=== PATIENT | female | born 1935 | race Hispanic/Latino ===

== ENCOUNTER 2018-06-20 17:06 | Observation (INO) | payer OTHER, MEDICARE ==
[~2018-06-20] VITALS: Ht 132.1 cm; Wt 74.3 kg
[~2018-06-20 17:06] MED LIST: AEC81 PO; ALBU8.5H8 IH; ALEN70TA10 PO; APIX5TAB PO; ATOR40TA69 PO; AZIT500T4 PO; CARV6.25 PO; CHOL100018 PO; D ME PO; ESOM40CA PO; FOLI-74 PO; LEVO25TA54 PO
[2018-06-20 17:38] LABS: BASOPHILS % (AUTO) 1.2 % (0.0-5.0); EOSINOPHILS % (AUTO) 0.4 % (0.0-8.0); HEMATOCRIT 38.5 % (36-48); LYMPHOCYTES % (AUTO) 19.7 % (21.0-51.0); MEAN CORPUSCULAR HEMOGLOBIN 28.3 pg (27.0-33.0); MEAN CORPUSCULAR HGB CONC 32.3 g/dL (32.0-36.0); MEAN CORPUSCULAR VOLUME 87.8 fL (79-99); MONOCYTES % (AUTO) 6.4 % (3.0-13.0); NEUTROPHILS % (AUTO) 72.3 % (40.0-77.0); PLATELET COUNT (AUTO) 193 K/uL (130-400); RED BLOOD CELL COUNT(AUTO) 4.39 MIL/uL (4.00-5.50); RED CELL DISTRIBUTION WIDTH 14.8 % (11.0-15.5); WHITE BLOOD COUNT (AUTO) 9.6 K/uL (4.8-10.8)
[2018-06-20 17:48] LABS: CREATININE 1.4 mg/dL (0.5-1.5)
[2018-06-20 17:50] LABS: INR 1.01 (0.85-1.15); PARTIAL THROMBOPLASTIN TIME 24.2 SEC (26.3-35.5); PROTHROMBIN TIME 10.6 SEC (9.6-11.6)
[2018-06-20 17:53] LABS: ALBUMIN 3.1 g/dL (3.5-5.0); BILIRUBIN,TOTAL 0.5 mg/dL (0.2-1.0); TOTAL PROTEIN, SERUM 6.8 g/dL (6.0-8.3)
[2018-06-20] MEDS ORDERED: AZITHROMYCIN 250 MG TABLET PO ONE (18:01)
[2018-06-20 18:11] LABS: B-TYPE NATRIURETIC PEPTIDE 42 pg/mL (0-100)
[2018-06-20] MEDS ORDERED: IPRATROPIUM/ALBUTEROL SULFATE 3 ML SOLUTION IH ONE (18:12)
[2018-06-20] MEDS ORDERED: SODIUM CHLORIDE 0.9% 50 ML IV ONE (19:03)
[2018-06-20] MEDS ORDERED: CEFTRIAXONE SODIUM 1 GM ONE (19:03)
[2018-06-20] MEDS ORDERED: METHYLPREDNISOLONE SOD SUCC 40MG/ML 1ML ONE (19:43)
[2018-06-20] MEDS ORDERED: ASPIRIN 325 MG TABLET ONE (19:43)
[2018-06-20] MEDS ORDERED: OSELTAMIVIR PHOSPHATE 75 MG CAP ONE (19:44)
[2018-06-20] MEDS ORDERED: GUAIFENESIN-CODEINE 5 ML SYRUP ONE (19:44)
[2018-06-20] MEDS ORDERED: TRAMADOL HCL 50 MG TABLET PO PRN (20:15)
[2018-06-20] MEDS ORDERED: ONDANSETRON HCL 4 MG/2 ML VIAL IVP PRN (20:15)
[2018-06-20 21:01] LABS: APPEARANCE,URINE Clear (CLEAR); BILIRUBIN,URINE Negative (NEGATIVE); COLOR,URINE Yellow (YELLOW); GLUCOSE, URINE (UA) Negative (NEGATIVE); KETONES,URINE Negative (NEGATIVE); LEUKOCYTE ESTERASE ,URINE Negative (NEGATIVE); NITRATE,URINE Negative (NEGATIVE); OCCULT BLOOD,URINE Negative (NEGATIVE); PROTEIN,URINE Negative (NEGATIVE); UROBILINOGEN,URINE 0.2 mg/dL (0.2-1.0)
[2018-06-20] MEDS: IPRATROPIUM/ALBUTEROL SULFATE 3 ML SOLUTION IH SCH (21:56)
[2018-06-20 23:17] VITALS: BP 167/81
[2018-06-20] MEDS: LACTATED RINGERS 1000ML 1,000 ML IV SCH (23:34)
[2018-06-20] MEDS: ACETAMINOPHEN 325 MG TAB PO SCH (23:38)
[2018-06-21] MEDS ORDERED: ATOR40TA71 PO (00:08)
[2018-06-21] MEDS ORDERED: MONT10TA24 PO (00:08)
[2018-06-21] MEDS ORDERED: LEVO50TA11 PO (00:08)
[2018-06-21] MEDS ORDERED: ALBU8.5H8 IH (00:08)
[2018-06-21] MEDS ORDERED: FOLI1TAB24 PO (00:08)
[2018-06-21] MEDS ORDERED: FLUT50BL IH (00:08)
[2018-06-21] MEDS ORDERED: ALEN70TA10 PO (00:08)
[2018-06-21] MEDS ORDERED: ESOM40CA54 PO (00:08)
[2018-06-21] MEDS ORDERED: GUAI100S35 PO (00:08)
[2018-06-21] MEDS ORDERED: CHOL100046 PO (00:08)
[2018-06-21] MEDS ORDERED: CARV12.511 PO (00:08)
[2018-06-21] MEDS ORDERED: APIX5TAB PO (00:08)
[2018-06-21 00:49] LABS: CREATINE KINASE, TOTAL 81 U/L (21-232); MYOGLOBIN 83 ng/mL (10-92); TROPONIN I < 0.04 ng/mL (0.00-0.06)
[2018-06-21] MEDS: ACETAMINOPHEN 325 MG TAB PO SCH ×4 (02:00→20:59)
[2018-06-21] MEDS: IPRATROPIUM/ALBUTEROL SULFATE 3 ML SOLUTION IH SCH ×6 (02:39→21:13)
[2018-06-21 03:00] VITALS: BP 149/61
[2018-06-21] MEDS: GUAIFENESIN-CODEINE 5 ML SYRUP PO PRN ×3 (05:31→17:06)
[2018-06-21 06:33] LABS: HEMATOCRIT 37.3 % (36-48); MEAN CORPUSCULAR HEMOGLOBIN 29.3 pg (27.0-33.0); MEAN CORPUSCULAR HGB CONC 33.7 g/dL (32.0-36.0); PLATELET COUNT (AUTO) 193 K/uL (130-400); RED BLOOD CELL COUNT(AUTO) 4.29 MIL/uL (4.00-5.50); RED CELL DISTRIBUTION WIDTH 14.9 % (11.0-15.5); WHITE BLOOD COUNT (AUTO) 9.1 K/uL (4.8-10.8)
[2018-06-21 06:56] LABS: CARBON DIOXIDE 24 mmol/L (21-32); CHLORIDE 105 mmol/L (101-111); CREATINE KINASE, TOTAL 72 U/L (21-232); CREATININE 1.1 mg/dL (0.5-1.5); GLOMERULAR FILTR. RATE CALC 50 mL/min (>60); GLUCOSE,RANDOM 150 mg/dL (70-105); MYOGLOBIN 68 ng/mL (10-92); POTASSIUM 4.7 mmol/L (3.5-5.1); SODIUM SERUM 138 mmol/L (136-145); TROPONIN I < 0.04 ng/mL (0.00-0.06); UREA NITROGEN, BLOOD 26 mg/dL (7-18)
[2018-06-21 08:00] VITALS: BP 182/82
[2018-06-21] MEDS: OSELTAMIVIR PHOSPHATE 75 MG CAP PO SCH ×2 (08:19→20:59)
[2018-06-21] MEDS: PANTOPRAZOLE SODIUM 40 MG TABLET.DR PO SCH (08:20)
--- NOTE | 2018-06-21 08:52 | NUR ---
BP 182/82 T/C SENT TO ATTENDING MD THROUGH ANSWERING SERVICE. PENDING CALL BACK. 0900.- CALL RECEIVED FROM MD AND NEW ORDERS RECEIVED.
[2018-06-21] MEDS: APIXABAN 5 MG TABLET PO SCH (09:00)
[2018-06-21] MEDS ORDERED: ENOXAPARIN SODIUM 40 MG/0.4 ML SYRINGE SQ SCH (09:00)
[2018-06-21] MEDS: LEVOTHYROXINE 50 MCG TABLET PO SCH (09:00)
[2018-06-21] MEDS ORDERED: ALBUTEROL SULFATE 0.083% 2.5 MG/3 ML INH IH PRN (09:15)
[2018-06-21] MEDS ORDERED: HYDRALAZINE HCL 20 MG/ML VIAL IV PRN (09:15)
[2018-06-21] MEDS: LACTATED RINGERS 1000ML 1,000 ML IV SCH (09:35)
[2018-06-21] MEDS: MONTELUKAST SODIUM 10 MG TAB PO SCH (10:10)
[2018-06-21] MEDS: MULTIVITAMINS/MINERALS/IRO TAB PO SCH (10:10)
[2018-06-21] MEDS: CARVEDILOL 12.5 MG TABLET PO SCH ×2 (10:11→20:59)
[2018-06-21] MEDS: ATORVASTATIN CALCIUM 40 MG TABLET PO SCH (10:15)
[2018-06-21 14:04] VITALS: BP 121/54
[2018-06-21 16:00] VITALS: BP 112/54
[2018-06-21] MEDS ORDERED: AZITHROMYCIN 500MG+NS 250ML 250 ML IV SCH (18:00)
[2018-06-21 19:00] VITALS: BP 119/55
[2018-06-21] MEDS ORDERED: CEFTRIAXONE SODIUM 1 GM IVP SCH (19:00)
[2018-06-21] MEDS: METHYLPREDNISOLONE SOD SUCC 40MG/ML 1ML IVP SCH (20:58)
[2018-06-21 23:32] VITALS: BP 141/57
[2018-06-22] MEDS: IPRATROPIUM/ALBUTEROL SULFATE 3 ML SOLUTION IH SCH ×3 (01:10→10:30)
[2018-06-22] MEDS: ACETAMINOPHEN 325 MG TAB PO SCH ×3 (02:00→14:00)
[2018-06-22 03:40] VITALS: BP_SYST 122; BP_SYST 132; BP_DIAS 53; BP_DIAS 64
[2018-06-22 06:51] LABS: BASOPHILS % (AUTO) 0.3 % (0.0-5.0); EOSINOPHILS % (AUTO) 0.8 % (0.0-8.0); HEMATOCRIT 36.8 % (36-48); LYMPHOCYTES % (AUTO) 26.1 % (21.0-51.0); MEAN CORPUSCULAR HEMOGLOBIN 28.7 pg (27.0-33.0); MEAN CORPUSCULAR HGB CONC 32.9 g/dL (32.0-36.0); MEAN CORPUSCULAR VOLUME 87.3 fL (79-99); MONOCYTES % (AUTO) 7.4 % (3.0-13.0); NEUTROPHILS % (AUTO) 65.4 % (40.0-77.0); PLATELET COUNT (AUTO) 171 K/uL (130-400); RED BLOOD CELL COUNT(AUTO) 4.21 MIL/uL (4.00-5.50); RED CELL DISTRIBUTION WIDTH 14.8 % (11.0-15.5); WHITE BLOOD COUNT (AUTO) 8.4 K/uL (4.8-10.8)
[2018-06-22 07:06] LABS: CREATININE 1.1 mg/dL (0.5-1.5); POTASSIUM 4.3 mmol/L (3.5-5.1)
[2018-06-22 08:00] VITALS: BP 124/55
[2018-06-22] MEDS: MULTIVITAMINS/MINERALS/IRO TAB PO SCH (08:36)
[2018-06-22] MEDS: MONTELUKAST SODIUM 10 MG TAB PO SCH (08:36)
[2018-06-22] MEDS: PANTOPRAZOLE SODIUM 40 MG TABLET.DR PO SCH (08:36)
[2018-06-22] MEDS: APIXABAN 5 MG TABLET PO SCH (08:36)
[2018-06-22] MEDS: ATORVASTATIN CALCIUM 40 MG TABLET PO SCH (08:36)
[2018-06-22] MEDS: LEVOTHYROXINE 50 MCG TABLET PO SCH (08:36)
[2018-06-22] MEDS: CARVEDILOL 12.5 MG TABLET PO SCH (08:38)
[2018-06-22] MEDS: OSELTAMIVIR PHOSPHATE 75 MG CAP PO SCH (08:38)
[2018-06-22] MEDS: METHYLPREDNISOLONE SOD SUCC 40MG/ML 1ML IVP SCH (08:39)
[2018-06-22] MEDS: GUAIFENESIN-CODEINE 5 ML SYRUP PO PRN (08:39)
[2018-06-22] MEDS ORDERED: ARNUITY ELLIPTA IH SCH (09:00)
[2018-06-22 11:54] VITALS: BP 149/59
[2018-06-22 12:00] VITALS: BP 149/59
--- NOTE | 2018-06-22 14:50 | NUR ---
DISCHARGE INSTRUCTIONS WERE PROVIDED TO THE PATIENT AND HER DAUGHTER PRESENT AT THE BEDSIDE BY CHARGE NURSE RAD BECERRA RN WITH PRESCRIPTION AND FOLLOW-UP APPOINTMENT RECOMMENDATION. IV ACCESS WAS REMOVED WITHOUT COMPLICATION AND PRESSURE DRESSING WAS APPLIED ON THE SITE BY RUBI. PATIENT LEFT THE UNIT IN STABLE CONDITION VIA W/C ACCOMPANIED BY CN AND HER DAUGHTER.
== END 2018-06-22 14:50 | disposition home or self-care (01) ==
LOC: EDH 17:06 → EDHIP 19:34 → 3DH 21:55
PROVIDERS: ADMIT Internal Medicine Critical Care Medicine; ATTEND Internal Medicine Critical Care Medicine
DX: J96.01 Acute respiratory failure with hypoxia (principal); I10 Essential (primary) hypertension; E66.9 Obesity, unspecified; J18.1 Lobar pneumonia, unspecified organism; Z86.711 Personal history of pulmonary embolism; Z86.718 Personal history of other venous thrombosis and embolism; Z79.01 Long term (current) use of anticoagulants
CPT/HCPCS: 36415 ×3; 71045 ×2; 80048 ×2; 80053; 81003; 82550 ×3; 83874 ×2; 83880; 84484 ×3; 85025 ×2; 85027; 85610; 85730; 87804 ×2; 93005; 94640 ×11; 94664; A4218; G0378 ×43; J0456; J0696 ×2; J1650; J2920 ×3; 96365; 96366; 96372; 96375; 96376

== ENCOUNTER 2018-09-16 17:26 | Emergency (ER) | payer OTHER, MEDICARE ==
[~2018-09-16 17:26] MED LIST changes: -AEC81 PO; -ATOR40TA69 PO; +ATOR40TA71 PO; -AZIT500T4 PO; +CARV12.511 PO; -CARV6.25 PO; -CHOL100018 PO; +CHOL100046 PO; -D ME PO; -ESOM40CA PO; +ESOM40CA54 PO; +FLUT50BL IH; -FOLI-74 PO; +FOLI1TAB24 PO; +GUAI100S35 PO; -LEVO25TA54 PO; +LEVO50TA11 PO; +MONT10TA24 PO
[2018-09-16] MEDS ORDERED: HYDROCODONE/ACETAMINOPHEN 10/325 MG TAB ONE (18:56)
== END 2018-09-16 19:49 | disposition home or self-care (01) ==
LOC: EDH 17:26
DX: S42.201A Unspecified fracture of upper end of right humerus, initial encounter for closed fracture (principal); I10 Essential (primary) hypertension; J44.9 Chronic obstructive pulmonary disease, unspecified; E78.5 Hyperlipidemia, unspecified; E07.9 Disorder of thyroid, unspecified; E11.9 Type 2 diabetes mellitus without complications; Z95.1 Presence of aortocoronary bypass graft; W01.0XXA Fall on same level from slipping, tripping and stumbling without subsequent striking against object, initial encounter; Y93.01 Activity, walking, marching and hiking; Y92.89 Other specified places as the place of occurrence of the external cause; Y99.8 Other external cause status
CPT/HCPCS: 29105; 73060; 73080

== ENCOUNTER → 2018-11-27 | Outpatient (CLI) | payer OTHER, MEDICARE | END | disposition home or self-care (01) | LOC: SHCH 09:05 | PROVIDERS: ATTEND Internal Medicine Cardiovascular Disease | DX: M79.605 Pain in left leg (principal); M79.604 Pain in right leg | CPT/HCPCS: 93922 ==

== ENCOUNTER → 2020-11-13 | Outpatient (CLI) | payer OTHER, MEDICARE ==
[~2020-11-13] VITALS: Ht 149.9 cm; Wt 76.7 kg
[~2020-11-13] MED LIST changes: -ALEN70TA10 PO; +ALEN70TA80 PO; -GUAI100S35 PO; -MONT10TA24 PO; +MONT10TA32 PO; +REGADENOSON 0.4 MG/5 ML PF SYG IVP SCH; +[UNRECOGNIZED DRUG - CODE] PO
== END | disposition home or self-care (01) ==
LOC: SHCH 09:40
PROVIDERS: ATTEND Internal Medicine Cardiovascular Disease
DX: R06.09 Other forms of dyspnea (principal)
CPT/HCPCS: 78452; 93017; 96374; A9500 ×2; J2785

== ENCOUNTER 2023-11-22 21:02 | Inpatient (IN) | payer MEDICARE, OTHER ==
[~2023-11-22] VITALS: Ht 149.9 cm; Wt 72.8 kg
[~2023-11-22 21:02] MED LIST changes: -ESOM40CA54 PO; +ESOM40CA66 PO; -FOLI1TAB24 PO; +FOLI1TAB26 PO; +MONT-39 PO; -MONT10TA32 PO; -REGADENOSON 0.4 MG/5 ML PF SYG IVP SCH
[2023-11-22 21:30] LABS: BASOPHILS # (AUTO) 0.04 K/uL (0.00-0.20); BASOPHILS % (AUTO) 0.3 % (0.0-5.0); EOSINOPHILS # (AUTO) 0.09 K/uL (0.00-0.70); EOSINOPHILS % (AUTO) 0.7 % (0.0-8.0); HEMATOCRIT 36.7 % (36-48); IMMATURE GRANULOCYTE ABSOLUTE 0.08 K/uL (0-1); LYMPHOCYTES # (AUTO) 1.4 K/uL (1.0-4.8); LYMPHOCYTES % (AUTO) 11.2 % (21.0-51.0); MEAN CORPUSCULAR HEMOGLOBIN 28.7 pg (27.0-33.0); MEAN CORPUSCULAR VOLUME 87.2 fL (79-99); MONOCYTES # (AUTO) 0.6 K/uL (0.1-1.0); MONOCYTES % (AUTO) 4.9 % (3.0-13.0); NEUTROPHILS # (AUTO) 10.3 K/uL (1.8-7.7); NEUTROPHILS % (AUTO) 82.3 % (40.0-77.0); PLATELET COUNT (AUTO) 181 K/uL (130-400); RED BLOOD CELL COUNT(AUTO) 4.21 MIL/uL (4.00-5.50); RED CELL DISTRIBUTION WIDTH 13.7 % (11.0-15.5); WHITE BLOOD COUNT (AUTO) 12.5 K/uL (4.8-10.8)
[2023-11-22 21:42] LABS: ALBUMIN 3.4 g/dL (3.5-5.0); CREATININE 1.3 mg/dL (0.5-1.0); POTASSIUM 4.7 mmol/L (3.5-5.1)
[2023-11-22 21:50] LABS: BILIRUBIN,TOTAL 0.7 mg/dL (0.2-1.0)
[2023-11-22 21:57] LABS: INR <= 0.93 (0.85-1.15); PROTHROMBIN TIME 10.8 SEC (9.6-11.6)
[2023-11-22 21:58] LABS: PARTIAL THROMBOPLASTIN TIME 26.9 SEC (26.3-35.5)
[2023-11-22 21:59] LABS: B-TYPE NATRIURETIC PEPTIDE 117 pg/mL (0-100)
[2023-11-22] MEDS: 0.9% NACL 500ML IV.SOLN 500 ML IV ONE (22:21)
[2023-11-22] MEDS ORDERED: ONDANSETRON 4MG INJ IV PRN (23:30)
[2023-11-22] MEDS ORDERED: ACETAMINOPHEN 325 MG TAB PO PRN ×2 (23:30)
[2023-11-23] MEDS: PANTOPRAZOLE 40 MG/VIAL IVP ONE ×2 (00:11→00:12)
[2023-11-23] MEDS: MAG/ALUM/SIMETH 30 ML UDCUP PO ONE (00:11)
[2023-11-23] MEDS: DICYCLOMINE HCL 10 MG/5 ML ML PO ONE (00:11)
[2023-11-23] MEDS: LIDOCAINE HCL 2% VISCOUS 15 ML UDCUP PO ONE (00:11)
[2023-11-23] MEDS: LACTATED RINGERS 1000ML 1,000 ML IV SCH (00:12)
[2023-11-23] MEDS: MORPHINE 2 MG SYG IM ONE (00:12)
[2023-11-23] MEDS: ONDANSETRON 4MG INJ IVP ONE (00:12)
[2023-11-23] MEDS: MORPHINE 4 MG SYG IV PRN (00:12)
[2023-11-23] MEDS ORDERED: LEVO50TA11 PO (00:32)
[2023-11-23] MEDS ORDERED: APIX5TAB PO (00:32)
[2023-11-23] MEDS ORDERED: FLUT1AER IH (00:32)
[2023-11-23] MEDS ORDERED: LORA10TA7 PO (00:32)
[2023-11-23] MEDS ORDERED: MONT-39 PO (00:32)
[2023-11-23] MEDS ORDERED: MULT-1367 PO (00:32)
[2023-11-23] MEDS ORDERED: ESOM40CA66 PO (00:32)
[2023-11-23] MEDS ORDERED: ALBU18HF7 IH (00:32)
[2023-11-23] MEDS ORDERED: PIND5 PO (00:32)
[2023-11-23] MEDS ORDERED: FOLI1TAB85 PO (00:32)
[2023-11-23] MEDS ORDERED: LINA5TAB PO (00:32)
[2023-11-23] MEDS ORDERED: ROSU10TA72 PO (00:32)
[2023-11-23] MEDS: 0.9%NACL 1000ML 1,000 ML IV SCH (01:50)
[2023-11-23] MEDS ORDERED: POTASSIUM CHLORIDE 20MEQ/100ML 100 ML IV PRN (02:30)
[2023-11-23 02:35] LABS: BASOPHILS # (AUTO) 0.03 K/uL (0.00-0.20); BASOPHILS % (AUTO) 0.3 % (0.0-5.0); EOSINOPHILS # (AUTO) 0.07 K/uL (0.00-0.70); EOSINOPHILS % (AUTO) 0.6 % (0.0-8.0); HEMATOCRIT 35.1 % (36-48); IMMATURE GRANULOCYTE ABSOLUTE 0.06 K/uL (0-1); MEAN CORPUSCULAR HEMOGLOBIN 29.2 pg (27.0-33.0); MEAN CORPUSCULAR HGB CONC 33.3 g/dL (32.0-36.0); MEAN CORPUSCULAR VOLUME 87.5 fL (79-99); MONOCYTES # (AUTO) 0.8 K/uL (0.1-1.0); MONOCYTES % (AUTO) 7.3 % (3.0-13.0); NEUTROPHILS # (AUTO) 8.6 K/uL (1.8-7.7); NEUTROPHILS % (AUTO) 74.3 % (40.0-77.0); PLATELET COUNT (AUTO) 164 K/uL (130-400); RED BLOOD CELL COUNT(AUTO) 4.01 MIL/uL (4.00-5.50); RED CELL DISTRIBUTION WIDTH 13.4 % (11.0-15.5); WHITE BLOOD COUNT (AUTO) 11.6 K/uL (4.8-10.8)
[2023-11-23] MEDS: ZOSYN 3.375GM +NS 50ML IV SCH (02:48)
[2023-11-23 02:49] LABS: HEMOGLOBIN A1C 6.1 % (4.0-6.0)
[2023-11-23 02:58] LABS: INR <= 0.93 (0.85-1.15); PROTHROMBIN TIME 10.9 SEC (9.6-11.6)
[2023-11-23 03:00] LABS: PARTIAL THROMBOPLASTIN TIME 25.9 SEC (26.3-35.5)
[2023-11-23 03:19] LABS: CREATININE 1.2 mg/dL (0.5-1.0); MAGNESIUM 1.6 mg/dL (1.80-2.40); PHOSPHORUS 3.3 mg/dL (2.5-4.9); POTASSIUM 4.1 mmol/L (3.5-5.1)
[2023-11-23 03:29] LABS: APPEARANCE,URINE CLEAR (CLEAR); BILIRUBIN,URINE NEGATIVE (NEGATIVE); COLOR,URINE COLORLESS (YELLOW); GLUCOSE, URINE (UA) NEGATIVE (NEGATIVE); KETONES,URINE NEGATIVE (NEGATIVE); LEUKOCYTE ESTERASE ,URINE NEGATIVE Leu/uL (NEGATIVE); NITRATE,URINE NEGATIVE (NEGATIVE); OCCULT BLOOD,URINE NEGATIVE (NEGATIVE); PH,URINE 5.5 (5.0-8.0); PROTEIN,URINE NEGATIVE (NEGATIVE); UROBILINOGEN,URINE 0.2 mg/dL (0.2-1.0)
[2023-11-23 03:41] LABS: ADD UA MICROSCOPIC NO
[2023-11-23 04:27] LABS: SODIUM,URINE RANDOM 19 mmol/l (40-220)
[2023-11-23] MEDS: INSULIN HUMULIN R 100 UNIT/ML 3ML SQ SCH (07:30)
[2023-11-23] MEDS: PANTOPRAZOLE 40 MG/VIAL IVP SCH (08:20)
[2023-11-23] MEDS ORDERED: ALBUTEROL SULFATE IH PRN (09:30)
[2023-11-23] MEDS ORDERED: MORPHINE 2 MG SYG IV PRN (09:30)
[2023-11-23 11:45] VITALS: O2SAT 94
[2023-11-23 12:00] VITALS: BP 124/65; PULSE 86; RESP 14
[2023-11-23 16:00] VITALS: BP 115/57; PULSE 89; RESP 14
[2023-11-23] MEDS: MAGNESIUM 2GM PREMIX 50ML 50 ML IV PRN (18:12)
[2023-11-23 18:53] VITALS: PULSE 84; RESP 18; O2SAT 95
[2023-11-23] MEDS: GUAIFENESIN-DM 200/20 MG 10 ML PO PRN (18:55)
[2023-11-23 20:00] VITALS: BP 131/62; PULSE 86; RESP 18; O2SAT 96
[2023-11-23] MEDS: ATORVASTATIN 20 MG TABLET PO SCH (20:50)
[2023-11-23] MEDS: ALBUTEROL 0.083% 2.5 MG/3 ML INH IH SCH (23:22)
[2023-11-23] MEDS: IPRATROPIUM 0.5 MG/2.5 ML INH IH SCH (23:22)
[2023-11-23] MEDS: ALBUTEROL 0.083% 2.5 MG/3 ML INH IH ONE (23:23)
[2023-11-23] MEDS: IPRATROPIUM 0.5 MG/2.5 ML INH IH ONE (23:23)
[2023-11-23 23:25] VITALS: PULSE 82; RESP 18
[2023-11-24] VITALS (12 sets, daily range): BP systolic 118–161; BP diastolic 53–77; PULSE 71–96; RESP 17–18; O2SAT 92–96
[2023-11-24 03:57] LABS: BASOPHILS # (AUTO) 0.02 K/uL (0.00-0.20); BASOPHILS % (AUTO) 0.3 % (0.0-5.0); EOSINOPHILS # (AUTO) 0.12 K/uL (0.00-0.70); EOSINOPHILS % (AUTO) 1.9 % (0.0-8.0); HEMATOCRIT 34.3 % (36-48); IMMATURE GRANULOCYTE ABSOLUTE 0.01 K/uL (0-1); LYMPHOCYTES # (AUTO) 1.8 K/uL (1.0-4.8); LYMPHOCYTES % (AUTO) 27.4 % (21.0-51.0); MEAN CORPUSCULAR HEMOGLOBIN 28.4 pg (27.0-33.0); MEAN CORPUSCULAR HGB CONC 31.8 g/dL (32.0-36.0); MEAN CORPUSCULAR VOLUME 89.3 fL (79-99); MONOCYTES # (AUTO) 0.6 K/uL (0.1-1.0); MONOCYTES % (AUTO) 8.8 % (3.0-13.0); NEUTROPHILS % (AUTO) 61.4 % (40.0-77.0); PLATELET COUNT (AUTO) 162 K/uL (130-400); RED BLOOD CELL COUNT(AUTO) 3.84 MIL/uL (4.00-5.50); RED CELL DISTRIBUTION WIDTH 14.3 % (11.0-15.5); WHITE BLOOD COUNT (AUTO) 6.5 K/uL (4.8-10.8)
[2023-11-24 04:14] LABS: ALBUMIN 2.7 g/dL (3.5-5.0); BILIRUBIN,TOTAL 0.9 mg/dL (0.2-1.0); CREATININE 1.5 mg/dL (0.5-1.0); MAGNESIUM 2.7 mg/dL (1.80-2.40); POTASSIUM 4.3 mmol/L (3.5-5.1); TOTAL PROTEIN, SERUM 6.1 g/dL (6.0-8.3)
[2023-11-24] MEDS: LEVOTHYROXINE 50 MCG TABLET PO SCH (05:49)
[2023-11-24] MEDS: BUDESONIDE 0.5 MG/2 ML INH IH SCH (06:24)
[2023-11-24 07:01] LABS: ABG BASE EXCESS -0.7 mmol/L (-2.0-3.0); ABG HCO3 24.8 mmol/L (21.0-28.0); ABG OXYGEN SATURATION 92.2 % (95.0-99.0); ABG PCO2 44 mmHg (32-45); ABG PH 7.372 (7.35-7.450); VENT MODE, BG RA (ROOM AIR)
[2023-11-24] MEDS: ERYTHROMYCIN BASE 0.5% OPHTH OINT 1 GM TUBE OS SCH (08:00)
[2023-11-24] MEDS: MULTIVITAMIN TABLET PO SCH (08:30)
[2023-11-24] MEDS: Vitamin B Complex/Vit C/Folic Acid PO SCH (08:30)
[2023-11-24] MEDS: MONTELUKAST SODIUM 10 MG TAB PO SCH (08:30)
[2023-11-24] MEDS: PINDOLOL 5 MG TAB PO SCH (08:30)
[2023-11-24] MEDS: LORATADINE 10 MG TABLET PO SCH (08:30)
[2023-11-24] MEDS: FLUTICASONE/VILANTEROL 1 EACH AER.POW.BA IH SCH (08:35)
[2023-11-24] MEDS ORDERED: CETIRIZINE HCL 5 MG TABLET PO SCH (09:00)
[2023-11-24] MEDS ORDERED: NON-FORMULARY MEDICATION 1 EACH (Esomeprazole Magnesium 40 MG) PO SCH (09:00)
[2023-11-24] MEDS ORDERED: MONT-46 PO (12:30)
[2023-11-24] MEDS ORDERED: GUAI10LI14 PO (12:30)
[2023-11-24] MEDS ORDERED: AZIT500T4 PO (12:30)
[2023-11-24] MEDS ORDERED: ERYT1OIN7 OS (12:30)
[2023-11-24] MEDS: 0.9%NACL 1000ML 1,000 ML IV SCH (13:00)
[2023-11-24] MEDS: APIXABAN 5 MG TABLET PO SCH (21:12)
[2023-11-25] VITALS (12 sets, daily range): BP systolic 106–158; BP diastolic 56–79; PULSE 74–95; RESP 17–19; O2SAT 96
[2023-11-25 04:36] LABS: BASOPHILS # (AUTO) 0.03 K/uL (0.00-0.20); BASOPHILS % (AUTO) 0.4 % (0.0-5.0); EOSINOPHILS # (AUTO) 0.16 K/uL (0.00-0.70); EOSINOPHILS % (AUTO) 2.1 % (0.0-8.0); HEMATOCRIT 34.7 % (36-48); IMMATURE GRANULOCYTE ABSOLUTE 0.04 K/uL (0-1); LYMPHOCYTES # (AUTO) 1.9 K/uL (1.0-4.8); LYMPHOCYTES % (AUTO) 24.5 % (21.0-51.0); MEAN CORPUSCULAR HGB CONC 32.3 g/dL (32.0-36.0); MEAN CORPUSCULAR VOLUME 89.9 fL (79-99); MONOCYTES # (AUTO) 0.7 K/uL (0.1-1.0); MONOCYTES % (AUTO) 9.4 % (3.0-13.0); NEUTROPHILS # (AUTO) 4.9 K/uL (1.8-7.7); NEUTROPHILS % (AUTO) 63.1 % (40.0-77.0); PLATELET COUNT (AUTO) 148 K/uL (130-400); RED BLOOD CELL COUNT(AUTO) 3.86 MIL/uL (4.00-5.50); RED CELL DISTRIBUTION WIDTH 14.3 % (11.0-15.5); WHITE BLOOD COUNT (AUTO) 7.7 K/uL (4.8-10.8)
[2023-11-25 04:39] LABS: ALBUMIN 2.6 g/dL (3.5-5.0); BILIRUBIN,TOTAL 0.8 mg/dL (0.2-1.0); CREATININE 1.7 mg/dL (0.5-1.0); POTASSIUM 4.1 mmol/L (3.5-5.1); TOTAL PROTEIN, SERUM 6.2 g/dL (6.0-8.3)
[2023-11-25] MEDS ORDERED: BENZONATATE 100 MG CAPSULE PO PRN (09:00)
[2023-11-25] MEDS: TAMSULOSIN HCL 0.4 MG CAP.ER.24H PO ONE (10:46)
[2023-11-25] MEDS: BENZONATATE 100 MG CAPSULE PO SCH (13:40)
[2023-11-25] MEDS: CEFEPIME HCL 1 GM VIAL IVPB SCH (16:46)
[2023-11-25] MEDS: DOXYCYCLINE HYCLATE 100 MG TABLET PO SCH (21:36)
[2023-11-26] VITALS (10 sets, daily range): BP systolic 91–151; BP diastolic 48–77; PULSE 70–96; RESP 18–22; O2SAT 96
[2023-11-26 04:16] LABS: BASOPHILS # (AUTO) 0.03 K/uL (0.00-0.20); BASOPHILS % (AUTO) 0.4 % (0.0-5.0); EOSINOPHILS # (AUTO) 0.18 K/uL (0.00-0.70); EOSINOPHILS % (AUTO) 2.4 % (0.0-8.0); HEMATOCRIT 33.6 % (36-48); IMMATURE GRANULOCYTE ABSOLUTE 0.03 K/uL (0-1); LYMPHOCYTES # (AUTO) 1.7 K/uL (1.0-4.8); LYMPHOCYTES % (AUTO) 22.1 % (21.0-51.0); MEAN CORPUSCULAR HEMOGLOBIN 28.5 pg (27.0-33.0); MEAN CORPUSCULAR HGB CONC 32.4 g/dL (32.0-36.0); MONOCYTES # (AUTO) 0.6 K/uL (0.1-1.0); MONOCYTES % (AUTO) 8.3 % (3.0-13.0); NEUTROPHILS % (AUTO) 66.4 % (40.0-77.0); PLATELET COUNT (AUTO) 155 K/uL (130-400); RED BLOOD CELL COUNT(AUTO) 3.82 MIL/uL (4.00-5.50); RED CELL DISTRIBUTION WIDTH 14.2 % (11.0-15.5); WHITE BLOOD COUNT (AUTO) 7.5 K/uL (4.8-10.8)
[2023-11-26 04:48] LABS: ALBUMIN 2.7 g/dL (3.5-5.0); BILIRUBIN,TOTAL 0.5 mg/dL (0.2-1.0); CREATININE 1.3 mg/dL (0.5-1.0); MAGNESIUM 1.7 mg/dL (1.80-2.40); PHOSPHORUS 3.1 mg/dL (2.5-4.9); POTASSIUM 3.9 mmol/L (3.5-5.1); THYROID STIMULATING HORMONE 2.76 uIU/mL (0.36-3.74); TOTAL PROTEIN, SERUM 6.4 g/dL (6.0-8.3)
[2023-11-26] MEDS: TAMSULOSIN HCL 0.4 MG CAP.ER.24H PO SCH (08:32)
[2023-11-26] MEDS ORDERED: Vitamin B Complex/Vit C/Folic Acid PO SCH (09:00)
== END 2023-11-26 17:00 | disposition home or self-care (01) | DRG 393 ==
LOC: EDH 21:02 → EDHIP 23:11 → 4AH 11-23 11:45
PROVIDERS: ADMIT Internal Medicine; ATTEND Internal Medicine
DX: K42.0 Umbilical hernia with obstruction, without gangrene (principal); J69.0 Pneumonitis due to inhalation of food and vomit; J96.01 Acute respiratory failure with hypoxia; N17.9 Acute kidney failure, unspecified; N13.30 Unspecified hydronephrosis; N18.32 Chronic kidney disease, stage 3b; I12.9 Hypertensive chronic kidney disease with stage 1 through stage 4 chronic kidney disease, or unspecified chronic kidney disease; E11.65 Type 2 diabetes mellitus with hyperglycemia; E11.22 Type 2 diabetes mellitus with diabetic chronic kidney disease; E66.9 Obesity, unspecified; I25.10 Atherosclerotic heart disease of native coronary artery without angina pectoris; R91.1 Solitary pulmonary nodule; Z86.711 Personal history of pulmonary embolism; Z79.01 Long term (current) use of anticoagulants; Z86.718 Personal history of other venous thrombosis and embolism; K59.00 Constipation, unspecified; Z68.30 Body mass index [BMI] 30.0-30.9, adult; Z79.51 Long term (current) use of inhaled steroids; Z82.0 Family history of epilepsy and other diseases of the nervous system; Z82.3 Family history of stroke; Z82.49 Family history of ischemic heart disease and other diseases of the circulatory system; Z83.3 Family history of diabetes mellitus; Z87.01 Personal history of pneumonia (recurrent); Z95.5 Presence of coronary angioplasty implant and graft; Z95.828 Presence of other vascular implants and grafts
CPT/HCPCS: 36415; 36600; 71045; 71250; 73610; 74176; 80048; 80053; 81003; 82570; 82803; 82948; 83036; 83605; 83690; 83735; 83880; 83935; 84100; 84145; 84300; 84443; 84484; 84550; 85025; 85378; 85610; 85730; 87040; 93005; 94640; 94664; C9113; G0378; J0692; J2270; J2405; J2543; J3475; J7030; J7040; J7120

== ENCOUNTER → 2023-12-04 | Outpatient (CLI) | payer OTHER ==
[~2023-12-04] MED LIST changes: +ALBU18HF7 IH; -ALBU8.5H8 IH; -ALEN70TA80 PO; -ATOR40TA71 PO; +AZIT500T4 PO; -CARV12.511 PO; -CHOL100046 PO; +ERYT1OIN7 OS; +FLUT1AER IH; -FLUT50BL IH; -FOLI1TAB26 PO; +FOLI1TAB85 PO; +GUAI10LI14 PO; +LINA5TAB PO; +LORA10TA7 PO; +MONT-46 PO; +MULT-1367 PO; +PIND5 PO; +ROSU10TA72 PO; -[UNRECOGNIZED DRUG - CODE] PO
[2023-12-05 06:14] LABS: RHEUMATOID ARTHRITIS FACTOR <10.0 IU/mL (<14.0)
[2023-12-09 13:14] LABS: ATYPICAL P-ANCA AB <1:20 titer (Neg:<1:20); CYTOPLASMIC (C-ANCA) AB, IGG <1:20 titer (Neg:<1:20)
[2023-12-10 09:16] LABS: ALPHA-1-ANTITRYPSIN 163 mg/dL (101-187)
== END | disposition home or self-care (01) ==
LOC: LAB 11:10
PROVIDERS: ATTEND Internal Medicine
DX: R06.02 Shortness of breath (principal); J45.909 Unspecified asthma, uncomplicated; R05.9 Cough, unspecified
CPT/HCPCS: 36415; 82103; 82104; 83520; 85651; 86038; 86140; 86215; 86235; 86255; 86431

== ENCOUNTER 2024-04-22 05:55 | Inpatient (IN) | payer OTHER, MEDICARE ==
[2024-04-19 10:50] LABS: BASOPHILS # (AUTO) 0.04 K/uL (0.00-0.20); BASOPHILS % (AUTO) 0.7 % (0.0-5.0); EOSINOPHILS # (AUTO) 0.13 K/uL (0.00-0.70); EOSINOPHILS % (AUTO) 2.2 % (0.0-8.0); HEMATOCRIT 40.5 % (36-48); IMMATURE GRANULOCYTE ABSOLUTE 0.02 K/uL (0-1); LYMPHOCYTES % (AUTO) 33.3 % (21.0-51.0); MEAN CORPUSCULAR HEMOGLOBIN 28.4 pg (27.0-33.0); MEAN CORPUSCULAR HGB CONC 31.4 g/dL (32.0-36.0); MEAN CORPUSCULAR VOLUME 90.6 fL (79-99); MONOCYTES # (AUTO) 0.5 K/uL (0.1-1.0); MONOCYTES % (AUTO) 8.3 % (3.0-13.0); NEUTROPHILS # (AUTO) 3.2 K/uL (1.8-7.7); NEUTROPHILS % (AUTO) 55.2 % (40.0-77.0); PLATELET COUNT (AUTO) 177 K/uL (130-400); RED BLOOD CELL COUNT(AUTO) 4.47 MIL/uL (4.00-5.50); RED CELL DISTRIBUTION WIDTH 14.4 % (11.0-15.5); WHITE BLOOD COUNT (AUTO) 5.9 K/uL (4.8-10.8)
[2024-04-19 10:56] VITALS: BP 147/81; PULSE 70; RESP 18; TEMP 98.1
[2024-04-19 11:01] LABS: CREATININE 1.4 mg/dL (0.5-1.0); POTASSIUM 4.8 mmol/L (3.5-5.1)
[~2024-04-22] VITALS: Ht 144.8 cm; Wt 73.7 kg
[2024-04-22] VITALS (20 sets, daily range): BP systolic 107–192; BP diastolic 53–100; PULSE 18–90; RESP 15–29; TEMP 96.8–98.6; O2SAT 96
[~2024-04-22 05:55] MED LIST changes: -AZIT500T4 PO; -ERYT1OIN7 OS; -FLUT1AER IH; -GUAI10LI14 PO; +LEVO50CA4 PO; -LEVO50TA11 PO; -MONT-46 PO; +MULT-1203 PO; -MULT-1367 PO; +PIND10TA2 PO; -PIND5 PO; +erythromycin oint TP
[2024-04-22 06:25] LABS: INR 1.01 (0.85-1.15); PROTHROMBIN TIME 10.9 SEC (9.6-11.6)
[2024-04-22 06:26] LABS: PARTIAL THROMBOPLASTIN TIME 24.2 SEC (26.3-35.5)
[2024-04-22] MEDS ORDERED: LIDOCAINE PF 100MG/5ML (2%) SYRINGE 5ML ONE (06:45)
[2024-04-22] MEDS ORDERED: rocuRONium bROMide 10MG/1ML 5ML VL ONE (06:46)
[2024-04-22] MEDS ORDERED: proPOFol 10 MG/ML 20ML VIAL IV ONE (06:46)
[2024-04-22] MEDS ORDERED: FENTanyl CITRate PF 50 MCG/1 ML 2ML VIAL ONE (06:47)
[2024-04-22] MEDS ORDERED: ROPivacaine 0.5% 5MG/ML 30ML ONE (06:48)
[2024-04-22] MEDS ORDERED: phenylEPHRINE HCL 10 MG/ML 1ML VIAL IV ONE (06:55)
[2024-04-22] MEDS ORDERED: ceFAZolin SODIUM 1 GM VIAL ONE (07:15)
[2024-04-22] MEDS: ceFAZolin SODIUM 2 GM VIAL IVPB ONE (07:20)
[2024-04-22] MEDS ORDERED: dexaMETHasone SOD PHOSPHATE 10MG/ML 1ML VIAL ONE (07:29)
[2024-04-22] MEDS ORDERED: ondanSETRON 4MG INJ ONE (07:29)
[2024-04-22] MEDS ORDERED: GLYCOPYRROLATE 0.2 MG/ML 5 ML VIAL ONE (07:48)
[2024-04-22] MEDS ORDERED: NEOSTIGMINE METHYLSULFATE 1MG/ML IV ONE (07:48)
--- NOTE | 2024-04-22 08:16 | OP ---
Operative Note: DATE OF PROCEDURE: 04/22/24 SURGEON: JANI PUCKETT MD REFINERY OPERATOR HELPER: [ITZEL Dutton] ANESTHESIA: [General endotracheal anesthesia] ANESTHESIOLOGIST/KENO CLERK: [[facility] anesthesia team] PREOPERATIVE DIAGNOSIS: [Ventral hernia incarcerated] POSTOPERATIVE DIAGNOSIS: [Same] SYNOPSIS: [Incarcerated ventral hernia Laparoscopic ventral hernia repair with mesh Appropriate closure of hernia defect All sponges and instruments were accounted for at the end the case Patient tolerated the procedure well, there no complications] PROCEDURE: [Laparoscopic ventral hernia repair with mesh] ESTIMATED BLOOD LOSS: [Less than 10 cc] INDICATIONS: [Ventral hernia causing patient discomfort] DESCRIPTION OF PROCEDURE: [On day of surgery patient was brought operating room. Position in the supine position. Preoperative antibiotics were given. Bilateral SCDs were placed. Patient was intubated. Patient was prepped and draped in the usual fashion. Skin incision made in the left upper quadrant. 5 mm trocars inserted under direct vision. Abdomen was insufflated 15 mmHg. No injury to omentum or bowel was noted. Then a 5 mm port was placed in the left lateral abdomen. The incarcerated omentum was sequentially reduced. Then the hernia sac was reduced. The hernia defect itself measured approximately 8 cm cm in the craniocaudal direction. Then the hernia defect was closed with suture in a [id number]-peovl fashion. Multiple rows of mbgtvt-[id number] fashion were placed in overlapping fashion. Complete closure of the hernia defect was achieved. Then a piece of Phasix mesh measuring 7 x 10 cm was used to cover the primary hernia repair. It was held in place by a transfascial suture then tacked circumferentially with an absorbable Tacker. Complete coverage of the primary hernia repair was achieved. Then all insufficient gas was removed. Ports removed. Then the incision was closed in subcuticular fashion and appropriately dressed. Patient then was woken up, transferred to, taken to recovery room to recover. All sponges and instruments were accounted for the end the case. Patient tolerated the procedure well, there is no complications.] JANI PUCKETT MD Apr 22, 2024 08:16
[2024-04-22] MEDS ORDERED: TRAM100C3 PO (08:28)
[2024-04-22] MEDS ORDERED: DOCU-116 PO (08:31)
[2024-04-22] MEDS: ceFAZolin SODIUM 2 GM VIAL ONE (08:41)
[2024-04-22] MEDS: SUGAMMADEX SODIUM 200 MG/2 ML VIAL IV ONE (08:41)
[2024-04-22] MEDS: 0.9%NACL 1000ML 1,000 ML IV ONE (09:20)
--- NOTE | 2024-04-22 09:52 | NUR ---
DAUGHTER STATES SHE WANTS HER MOTHER TO BE ADMITTED, STATES PT IS TOO WEAK TO AMBULATE, STATES SHE IS A FALL RISK, STATES SHE IS 88 YEARS OLD AND NEEDS CLOSE OBSERVATION, STATES SHE IS IN PAIN, STATES SHE CAN NOT DRESS HER. NOTIFIED KERRI SELF/AREN RN, PER AREN SELF WILL COMMUNICATE WITH JUAN SELF AND DR. PUCKETT TO SEE IF IT'S POSSIBLE TO ADMIT HER. DAUGHTER IS AWARE THAT AT THIS TIME THERE IS NO BEDS.
[2024-04-22] MEDS: FENTanyl CITRate PF 50 MCG/1 ML 2ML VIAL IVP SCH (11:05)
[2024-04-22] MEDS: FENTanyl CITRate PF 50 MCG/1 ML 2ML VIAL ONE (11:06)
--- NOTE | 2024-04-22 11:06 | NUR ---
ADMINISTERED FENTANYL 25 WASTED 75, PT STATES HAS PAIN BUT UNABLE TO GIVE NUMERICAL NUMBER.
--- NOTE | 2024-04-22 11:08 | NUR ---
RECEIVED CALL BACK FROM ALBERTINA FOSTER FOR HOSPITALIST CONSULT, STATES WILL ASK DR. LR TO VISIT PT FOR ASSESSMENT.
--- NOTE | 2024-04-22 11:54 | NUR ---
PER ALBERTINA FOSTER [employer] QUAL[employer] CONTROL INSPECTOR, PT WILL BE ADMITTED, ASKS TO NOTIFY DR. PUCKETT TO SEE IF HE NEEDS TO PUT ANY ORDERS AND TO LET HIM KNOW THAT PT WILL BE ADMITTED FOR OBSERVATION. CALLED SITE HEADBHAVIK GRAMAJO RN AND STATES SHE WILL LET DR. PUCKETT KNOW THAT PT WILL BE ADMITTED FOR OBSERVATION AND AWAITING ORDERS FROM DR. PUCKETT.
[2024-04-22] MEDS ORDERED: ondanSETRON 4MG INJ IVP PRN (12:00)
[2024-04-22] MEDS ORDERED: acetaMINOPHEN 325 MG TAB PO PRN (12:00)
--- NOTE | 2024-04-22 12:14 | HP ---
[facility] HISTORY AND PHYSICAL Date of Service: Apr 22, 2024 Time of Service: 11:46 HISTORY OF PRESENT ILLNESS: [ ] This is a 88-year-old female who underwent outpatient laparoscopic ventral hernia repair with mesh per Dr. Arana. During the course of recovery patient was having severe abdominal pain postop. Patient is was given fentanyl in day surgery brought down pain to 3/10. Patient will be admitted for observation for pain management. Patient was seen and examined with Dr. Christiansen day surgery room five. Daughter at bedside during my visit. Patient denied chest pain or shortness for breath encourage patient on early ambulation and deep breathing exercise. Instructed on pain medication in pain scale she verbalized understanding. Patient has abdo bandar binder. REVIEW OF SYSTEMS CONSTITUTIONAL: Denies fevers, chills, or night sweats. No unintentional weight loss reported. NEUROLOGICAL: Denies headache, amaurosis fugax, motor weakness, sensory deficit, vertigo/spinning sensation, gait abnormalities, or tremors. ENT: No hearing loss, otalgia, otorrhea, rhinitis, rhinorrhea, hoarseness, or sore throat. CARDIOVASCULAR: Denies any exertional angina, dyspnea on exertion, orthopnea, paroxysmal nocturnal dyspnea, palpitations, life-threatening arrhythmias, claudication. PULMONARY: Denies any shortness of breath, cough, phlegm/sputum, hemoptysis, pleuritic chest pain. SLEEP: Denies morning headaches, daytime somnolence or napping. Denies difficulty falling asleep, staying asleep, waking from sleep. Denies knowledge of snoring. GASTROINTESTINAL: Denies any type of dysphagia to either liquids or solids. Denies nausea, vomiting, pyrosis, early satiety, abdominal pain, diarrhea, constipation, or changes in stool consistency or caliber. Denies coffee-ground emesis, hematemesis, hematochezia, or melanotic stools. GENITOURINARY: Denies frequency, urgency, nocturia, hematuria or incontinence (Storage/Irritative symptoms.) Low urinary stream, straining to void, urinary intermittency or hesitancy, splitting of the voiding stream, terminal dribbling. ENDOCRINOLOGIC: Denies polyuria, polydipsia, polyphagia or heat/cold intolerances. HEMATOLOGIC: Denies thrombophilia/previous clots, or coagulopathy/bleeding disorders. ONCOLOGIC: Denies personal history of malignancy. DERMATOLOGIC: Denies rashes or pruritus. PSYCHIATRIC: Denies any suicidal or homicidal ideation. Denies hallucinations. PAST MEDICAL HISTORY: [ ] Refer to assessment PAST SURGICAL HISTORY: [ ]cholecystectomy PAST SOCIAL HISTORY: [ ]nonsmoker, denies ETOH FAMILY HISTORY: [ ] Noncontributory Coded Allergies: No Known Drug Allergies (Verified Allergy, 10/13/12) PHYSICAL EXAM GENERAL APPEARANCE: The patient is awake, alert, and oriented, in no acute cardiopulmonary distress. NEUROLOGICAL: Cranial nerves II-XII grossly intact. Motor is 5/5 in bilateral upper and lower extremities proximal to distal. No sensory deficits. HEENT: Face is symmetric. Pupils are equal and reactive. Extraocular movements are intact. NECK: Supple. No JVD. No thyromegaly. No submental, submandibular, pre- /postauricular, occipital or supraclavicular lymphadenopathy. CHEST: Normal chest expansion. No Telemetry. LUNGS: Absence of any rales, rhonchi or any wheezing. CARDIOVASCULAR: Regular. S1 and S2 normal. No appreciable rubs, murmurs or gallops. ABDOMEN: Soft, nontender, and nondistended. There is no rebound, voluntary guarding, or rigidity. : Deferred. No Elliott. EXTREMITIES: Non-edematous and not cyanotic. No clubbing. Good capillary refill. SKIN: No skin breakdown. Vital Sign (Last 24 Hours) 04/22/24 09:37 Temp 97.7 Pulse 64 Resp 18 B/P (MAP) 149/72 Pulse Ox 95 O2 Delivery Room Air O2 Flow Rate 10.0 LABS: Laboratory: Test 04/22/24 06:08 04/22/24 06:07 Range/Units Whole Blood Glucose 98 70-110 MG/DL Prothrombin Time 10.9 9.6-11.6 SEC Prothromb Time International Ratio 1.01 0.85-1.15 Activated Partial Thromboplast Time 24.2 L 26.3-35.5 SEC Current Medications Medications (Trade) Dose Ordered Sig/Brandan Route PRN Reason Start Time Stop Time Status Last Admin Dose Admin Fentanyl Citrate (FENTanyl CITRate PF 50 MCG/ 1 ML 2ML VIAL) 25 mcg ONCE IVP 04/22/24 11:00 04/22/24 14:00 04/22/24 11:05 25 MCG DIAGNOSTICS / RADIOLOGY: [ ] ASSESSMENT: s/p ventral hernia repair POA hypercoagulable secondary to A fibb on Eliquis POA Postop intractable abdominal pain POA Acute on chronic renal failure stage 3 POA chronic problems; AFib on anticoagulation Eliquis, chronic diastolic heart failure EF 55-60%. Stage three renal failure, hypertension, hyperlipidemia, diabetes type, vitamin- D deficiency, COPD asthma, COPD asthma PLAN: [ ] Admit to surgical floor Consult surgeon: Dr Sumit BRAMBILA s/p ventral hernia repair POA will follow postoperative recommendations per surgeon will DEFER Eliquis to restart per surgeon Encourage early ambulation and deep breathing exercise. IS while awake Labs in am; cbc, cmp, mag+ PT services to eval and treat early ambulation Pain management for adequate pain control morphine2 mg IV every4 hours, Tylenol #3 for moderate pain. Replace electrolytes to keep potassium above 4 Magnesium above 2 Home medications resumed: Levothyroxine 50 mcg every morning, Tradjenta5 mg p.o. a.m. atorvastatin 10 mg every bedtime, Fall precautions DVT with SCDs GI prophylaxis Famotidine PRN: MEDICATIONS Tylenol 650 mg po every 4 hrs for fever Zofran 4 mg IV every 6 hrs for n/v Hydralazine 10 mg IV every 4 hrs systolic pressure > 160 duoneb as needed for wheezes Supportive measures: DVT ppx, GI ppx all questions answered time spent: > 35 min Supervising MD: Dr. Christiansen c/d ADVANCED CARE PLANNING 1. Which of the following were discussed? Hospice Care - Yes / No Therapeutic options - Yes / No Advance Directives - Yes / No Other discussions - 2. Discussed with who? 3. Voluntary nature of this service was explained to the patient? Yes / No 4. Amount of time spent - ___25min____ 5. Reviewed by Physician? (if this service was performed by NPP) Yes / No ADVANCED CARE PLANNING 1. Which of the following were discussed? Hospice Care - Yes / No Therapeutic options - Yes / No Advance Directives - Yes / No Other discussions - 2. Discussed with who? 3. Voluntary nature of this service was explained to the patient? Yes / No 4. Amount of time spent - 5. Reviewed by Physician? (if this service was performed by NPP) Yes / No ALBERTINA DENNIS KILN OPERATOR Apr 22, 2024 12:14
--- NOTE | 2024-04-22 14:01 | NUR ---
PT LAYING QUIETLY ON BED, ASKED FOR WATER AND SIPS OF WATER GIVEN, STATES DOES NOT HAVE ANYMORE PAIN BUT HAS BEEN HAVING TO BURP A FEW TIMES.
[2024-04-22 15:25] LABS: HEMATOCRIT 39.5 % (36-48); MEAN CORPUSCULAR HEMOGLOBIN 28.9 pg (27.0-33.0); MEAN CORPUSCULAR HGB CONC 31.4 g/dL (32.0-36.0); MEAN CORPUSCULAR VOLUME 92.1 fL (79-99); RED BLOOD CELL COUNT(AUTO) 4.29 MIL/uL (4.00-5.50); RED CELL DISTRIBUTION WIDTH 14.6 % (11.0-15.5); WHITE BLOOD COUNT (AUTO) 8.6 K/uL (4.8-10.8)
[2024-04-22 15:33] LABS: CREATININE 1.4 mg/dL (0.5-1.0); POTASSIUM 4.6 mmol/L (3.5-5.1)
[2024-04-22 15:37] LABS: ALBUMIN 3.5 g/dL (3.5-5.0); BILIRUBIN,TOTAL 0.5 mg/dL (0.2-1.0); MAGNESIUM 1.6 mg/dL (1.80-2.40); TOTAL PROTEIN, SERUM 7.1 g/dL (6.0-8.3)
[2024-04-22] MEDS: morPHINE 2 MG SYG IVP PRN (16:30)
--- NOTE | 2024-04-22 16:45 | NUR ---
pt to come walk pt in [address] with walker tolerated well feeling better pt back to after voiding appx 200 ml clear yellow urine pt tray at bedside to eat
--- NOTE | 2024-04-22 18:18 | NUR ---
report called to criselda nurse to take pt n rm [phone]
[2024-04-22] MEDS: atorVAStatin 10 MG TABLET PO SCH (20:06)
--- NOTE | 2024-04-22 20:10 | NUR ---
MEDS SHIFT ASSESSMENT DONE, PLEASE REFER TO CHART. DUE MEDS ADMINISTERED, TOLERATED WELL. PT TOLERATING CLEAR LIQUID DIET WELL. KEPT RESTED AND COMFORTABLE IN BED WITH HOB ELEVATED. CALL LIGHT WITHIN REACH.
[2024-04-23] VITALS (7 sets, daily range): BP systolic 122–176; BP diastolic 75–85; PULSE 79–104; RESP 18; TEMP 98.1–98.5; O2SAT 91–94
--- NOTE | 2024-04-23 | NUR ---
PAIN PT HAD AN INCONTINENT EPISODE IN THE BED. PCP IN AND CLEANSED AND CHANGED PT. DIAPER PLACED FOR PT'S COMFORT. PT CLAIMS OF PAINS TO SX SITE. MEDICATED WITH MORPHINE IV. REPOSITIONED COMFORTABLY IN BED. WILL RE-ASSESS PT. Addendum: 04/23/24 at 0027 by GALI LEWIS RN RN Amended: Links added.
[2024-04-23] MEDS: levoTHYROxine 50 MCG TABLET PO SCH (05:49)
--- NOTE | 2024-04-23 05:50 | NUR ---
MEDS PT RESTING WELL IN BED. NO DISTRESS NOTED. NO CONCERNS VERBALIZED. DUE MEDS ADMINISTERED, TOLERATED WELL. KEPT COMFORTABLE. FOR MORE CARE.
[2024-04-23] MEDS: LORATAdine 10 mg 10 MG TABLET PO SCH (08:05)
[2024-04-23] MEDS: FAMOTIDINE 20MG VIAL IV SCH (08:05)
[2024-04-23] MEDS: linAGLIPtin 5 MG TABLET PO SCH (08:05)
--- NOTE | 2024-04-23 09:23 | DS ---
Discharge Summary Hospital Course Summary: This is a 88-year-old female who underwent outpatient laparoscopic ventral hernia repair with mesh per Dr. Arana. During the course of recovery patient was having severe abdominal pain postop. Patient is was given fentanyl in day surgery brought down pain to 3/10. Patient will be admitted for ob servation for pain management. Patient was admitted for observation. Patient is postop day one recuperating well no nausea no vomiting. Assessment/Plan: Discharged dx's: s/p ventral hernia repair POA POD 1 recuperating well, hypercoagulable secondary to A fibb on Eliquis POA Postop intractable abdominal pain POA Acute on chronic renal failure stage 3 POA chronic problems; AFib on anticoagulation Eliquis, chronic diastolic heart failure EF 55-60%. Stage three renal failure, hypertension, hyperlipidemia, diabetes type, vitamin- D deficiency, COPD asthma, COPD asthma PLAN: [ ] ADMISSION DATE: April 22, 2024 DISCHARGE DATE: April 23, 2024 DISPOSITION: Home CONDITION: Stable PROGRAMMER(S): General surgeon; DR Arana FOLLOW UP APPOINTMENT(S): DR Arana two wks. PROCEDURES: ventral hernia repair IMAGING (S) report attached to summary : none MICROBIOLOGY: report attached to summary; None ACTIVITY: ab marialuisa HOME MEDICATIONS: remain the same CHANGES ON HOME MEDICATIONS; NOne NEW MEDICATIONS: prescriptions per surgeon: Docusate Sodium (Colace) 100 Mg Capsule Gabapentin 100 Mg Capsule Methocarbamol (Robaxin) 750 Mg Tab Tramadol HCl (Tramadol HCl ER) 100 Mg Cpbp.25.75 TEACHING: No lifting greater than 10 lb for two months. Continue with abdominal binder. Emergency instructions: The patient was instructed to present to the nearest Emergency Department or call 911 should their symptoms return or worsen. Home Medications: Active Scripts Tramadol HCl (Tramadol HCl ER) 100 Mg Cpbp.25.75, 50 MG PO Q6HPRN PRN for PAIN, #28 TAB 0 Refills Prov:JANI ARANA MD 04/22/24 Reported Medications Multivitamin (Multi Vitamin Daily) 1 Each Tablet, 1 TAB PO DAILY for 30 Days, #30 TAB 0 Refills 04/19/24 Pindolol (Pindolol) 10 Mg Tablet, 5 MG PO BID, TAB 04/19/24 Vit B Cmplx 3/FA/Vit C/Biotin (Brooke-Keon Rx Tablet) 1 Mg-60 Mg-300 Mcg Tablet, 1 TAB PO DAILY for 30 Days, #30 TAB 0 Refills 04/19/24 Rosuvastatin Calcium (Rosuvastatin Calcium) 10 Mg Tablet, 10 MG PO DAILY, TAB 04/19/24 Loratadine (Loratadine) 10 Mg Tablet, 10 MG PO DAILY, TAB 04/19/24 Linagliptin (Tradjenta) 5 Mg Tablet, 5 MG PO DAILY, TAB 04/19/24 Levothyroxine Sodium (Levothyroxine) 50 Mcg Capsule, 1 CAP PO DAILY for 30 Days, #30 CAP 0 Refills 04/19/24 Montelukast Sodium (Montelukast Sodium) 10 Mg Tablet, 10 MG PO DAILY, TAB 04/19/24 Apixaban (Eliquis) 5 Mg Tablet, 1 TAB PO BID for 30 Days, #60 TAB 0 Refills 04/19/24 Esomeprazole Magnesium (Esomeprazole Magnesium) 40 Mg Capsule.dr, 1 CAP PO DAILY for 30 Days, #30 CAP 0 Refills 04/19/24 Albuterol Sulfate (Ventolin Hfa) 90 Mcg Hfa.aer.ad, 1 PUFF IH 4 x's a day PRN PRN for wheezing for 30 Days, #18 GM 0 Refills 04/19/24 [erythromycin oint] No Conflict Check, 0.5 TP BID 04/19/24 Discontinued Reported Medications Multivitamin (Multivitamin) 1 Each Tablet, 1 EACH PO DAILY, TAB 11/23/23 Rosuvastatin Calcium (Rosuvastatin Calcium) 10 Mg Tablet, 10 MG PO DAILY, TAB 11/23/23 Esomeprazole Magnesium (Esomeprazole Magnesium) 40 Mg Capsule.dr, 40 MG PO DAILY, CAP 11/23/23 Loratadine (Loratadine) 10 Mg Tablet, 10 MG PO DAILY, TAB 11/23/23 Apixaban (Eliquis) 5 Mg Tablet, 5 MG PO BID, TAB 11/23/23 Montelukast Sodium (Montelukast Sodium) 10 Mg Tablet, 10 MG PO DAILY, TAB 11/23/23 Levothyroxine Sodium (Levothyroxine Sodium) 50 Mcg Tablet, 50 MCG PO ACBKFST, TAB 11/23/23 Pindolol (Visken) 5 Mg Tab, 5 MG PO DAILY, TAB 11/23/23 Vit B Cmplx 3/FA/Vit C/Biotin (Brooke-Keon Rx Tablet) 1 Mg-60 Mg-300 Mcg Tablet, 1 EACH PO DAILY, TAB 11/23/23 Linagliptin (Tradjenta) 5 Mg Tablet, 5 MG PO DAILY, TAB 11/23/23 Fluticasone/Vilanterol (Breo Ellipta 100-25 Mcg INH) 100 Mcg-25 Mcg/Dose Aer.pow.ba, 1 EACH IH DAILY 11/23/23 Albuterol Sulfate (Ventolin Hfa) 90 Mcg Hfa.aer.ad, 2 GM IH Q6HPRN PRN for SHORTNESS OF BREATH, INHALER 11/23/23 Discontinued Scripts Azithromycin (Azithromycin) 500 Mg Tablet, 500 MG PO DAILY, #5 TAB Prov:OLENA OLSON [facility] 11/24/23 Montelukast Sodium (Singulair 10Mg) 10 Mg Tab, 10 MG PO DAILY, #60 TAB Prov:OLENA OLSON [facility] 11/24/23 Guaifenesin/Dextromethorphan (Guaifenesin-Dm 200-20 mg/10 ml) 100 Mg-10 Mg/5 Ml Liquid, 15 ML PO Q6H PRN for COUGH, #1 BOTTLE Prov:OLENA OLSON [facility] 11/24/23 Erythromycin Base (Erythromycin) 5 Mg/Gram (0.5 %) Oint...g., 0 APPL OS DAILY08, #1 TUBE 0 Refills apply bid for 5 days Prov:OLENA OLSON [facility] 11/24/23 New Medications: Docusate Sodium (Colace) 100 Mg Capsule 1 CAP PO BID for 30 Days, #60 CAP 0 Refills Gabapentin (Gabapentin) 100 Mg Capsule 1 CAP PO TID for 30 Days, #21 CAP 0 Refills Methocarbamol (Robaxin) 750 Mg Tab 500 MG PO TID, #21 TAB 0 Refills Tramadol HCl (Tramadol HCl ER) 100 Mg Cpbp.25.75 50 MG PO Q6HPRN PRN for PAIN, #28 TAB 0 Refills Continued Medications: Albuterol Sulfate (Ventolin Hfa) 90 Mcg Hfa.aer.ad 1 PUFF IH 4 x's a day PRN PRN for wheezing for 30 Days, #18 GM 0 Refills Apixaban (Eliquis) 5 Mg Tablet 1 TAB PO BID for 30 Days, #60 TAB 0 Refills [erythromycin oint] () 0.5 TP BID Esomeprazole Magnesium (Esomeprazole Magnesium) 40 Mg Capsule.dr 1 CAP PO DAILY for 30 Days, #30 CAP 0 Refills Levothyroxine Sodium (Levothyroxine) 50 Mcg Capsule 1 CAP PO DAILY for 30 Days, #30 CAP 0 Refills Linagliptin (Tradjenta) 5 Mg Tablet 5 MG PO DAILY, TAB Loratadine (Loratadine) 10 Mg Tablet 10 MG PO DAILY, TAB Montelukast Sodium (Montelukast Sodium) 10 Mg Tablet 10 MG PO DAILY, TAB Multivitamin (Multi Vitamin Daily) 1 Each Tablet 1 TAB PO DAILY for 30 Days, #30 TAB 0 Refills Pindolol (Pindolol) 10 Mg Tablet 5 MG PO BID, TAB Rosuvastatin Calcium (Rosuvastatin Calcium) 10 Mg Tablet 10 MG PO DAILY, TAB Vit B Cmplx 3/FA/Vit C/Biotin (Brooke-[facility]on Rx Tablet) 1 Mg-60 Mg-300 Mcg Tablet 1 TAB PO DAILY for 30 Days, #30 TAB 0 Refills ATTESTATION BY PHYSICIAN I have seen and examined the patient. I reviewed the documentation, medical decision making, and treatment plan as noted by the mid-level provider above. I agree with the findings and plan of care. ASIA LR MD, ELIZABETH NP Apr 23, 2024 09:23
[2024-04-23] MEDS: hydrALAZine 20MG/ML VIAL IV PRN (09:32)
[2024-04-23] MEDS: SIMETHICONE 80 MG TAB.CHEW PO PRN (09:58)
--- NOTE | 2024-04-23 11:57 | PN ---
[facility] PROGRESS NOTE Date of Service: Apr 23, 2024 Time of Service: 11:44 SUBJECTIVE: [ ] This is a 88-year-old female who underwent outpatient laparoscopic ventral hernia repair with mesh per Dr. Arana. During the course of recovery patient was having severe abdominal pain postop. Patient is was given fentanyl in day surgery brought down pain to 3/10. Patient will be admitted for observation for pain management. April 23, 2024. Patient is seen and examined with Dr. Christiansen reviewed chart vital signs blood pressure was elevated systolic 176 POD 1: recuperating well . tolerating diet no n/v: OOB to chair: reports pain to surgical sites, will add gabpentin 100 mg po TID. Denied chest pain or shortness on breath. 1200: Patient daughter is requesting IP rehab notified binder caser. REVIEW OF SYSTEMS CONSTITUTIONAL: Denies fevers, chills, or night sweats. No unintentional weight loss reported. NEUROLOGICAL: Denies headache, amaurosis fugax, motor weakness, sensory deficit, vertigo/spinning sensation, gait abnormalities, or tremors. ENT: No hearing loss, otalgia, otorrhea, rhinitis, rhinorrhea, hoarseness, or sore throat. CARDIOVASCULAR: Denies any exertional angina, dyspnea on exertion, orthopnea, paroxysmal nocturnal dyspnea, palpitations, life-threatening arrhythmias, claudication. PULMONARY: Denies any shortness of breath, cough, phlegm/sputum, hemoptysis, pleuritic chest pain. SLEEP: Denies morning headaches, daytime somnolence or napping. Denies difficulty falling asleep, staying asleep, waking from sleep. Denies knowledge of snoring. GASTROINTESTINAL: Denies any type of dysphagia to either liquids or solids. Denies nausea, vomiting, pyrosis, early satiety, abdominal pain, diarrhea, constipation, or changes in stool consistency or caliber. Denies coffee-ground emesis, hematemesis, hematochezia, or melanotic stools. GENITOURINARY: Denies frequency, urgency, nocturia, hematuria or incontinence ( Storage/Irritative symptoms.) Low urinary stream, straining to void, urinary intermittency or hesitancy, splitting of the voiding stream, terminal dribbling. ENDOCRINOLOGIC: Denies polyuria, polydipsia, polyphagia or heat/cold intolerances. HEMATOLOGIC: Denies thrombophilia/previous clots, or coagulopathy/bleeding disorders. ONCOLOGIC: Denies personal history of malignancy. DERMATOLOGIC: Denies rashes or pruritus. PSYCHIATRIC: Denies any suicidal or homicidal ideation. Denies hallucinations. PHYSICAL EXAM GENERAL APPEARANCE: The patient is awake, alert, and oriented, in no acute cardiopulmonary distress. NEUROLOGICAL: Cranial nerves II-XII grossly intact. Motor is 5/5 in bilateral upper and lower extremities proximal to distal. No sensory deficits. HEENT: Face is symmetric. Pupils are equal and reactive. Extraocular movements are intact. NECK: Supple. No JVD. No thyromegaly. No submental, submandibular, pre- /postauricular, occipital or supraclavicular lymphadenopathy. CHEST: Normal chest expansion. No Telemetry. LUNGS: Absence of any rales, rhonchi or any wheezing. CARDIOVASCULAR: Regular. S1 and S2 normal. No appreciable rubs, murmurs or gallops. ABDOMEN: Soft, nontender, and nondistended. There is no rebound, voluntary guarding, or rigidity. : Deferred. No Elliott. EXTREMITIES: Non-edematous and not cyanotic. No clubbing. Good capillary refill. SKIN: No skin breakdown. Vital Signs (last 8hr) Date Time Temp Pulse Resp B/P (MAP) Pulse Ox O2 Delivery O2 Flow Rate FiO2 04/23/24 08:43 98.4 88 18 176/75 91 Room Air 04/23/24 08:00 91 Room Air* 0 21 04/23/24 07:35 104 18 N/A Room Air 21 04/23/24 06:00 98.2 89 18 160/80 96 Room Air LABS: Laboratory: Test 04/22/24 19:31 04/22/24 15:05 04/22/24 06:07 Range/Units Whole Blood Glucose 158 H 70-110 MG/DL White Blood Count 8.6 4.8-10.8 K/uL Red Blood Count 4.29 4.00-5.50 MIL/uL Hemoglobin 12.4 12.0-16.0 g/dL Hematocrit 39.5 36-48 % Mean Corpuscular Volume 92.1 79-99 fL Mean Corpuscular Hemoglobin 28.9 27.0-33.0 pg Mean Corpuscular Hemoglobin Concent 31.4 L 32.0-36.0 g/dL Red Cell Distribution Width 14.6 11.0-15.5 % Platelet Count 155 130-400 K/uL Mean Platelet Volume 11.7 H 7.5-10.5 fL Nucleated Red Blood Cells 0.0 0.0-0.19 % Sodium Level 143 136-145 mmol/L Potassium Level 4.6 3.5-5.1 mmol/L Chloride Level 107 101-111 mmol/L Carbon Dioxide Level 27 21-32 mmol/L Blood Urea Nitrogen 26 H 7-18 mg/dL Creatinine 1.4 H 0.5-1.0 mg/dL Glomerular Filtration Rate Calc 36 >90 mL/min Random Glucose 175 H 70-105 mg/dL Total Calcium 8.4 L 8.5-10.1 mg/dL Magnesium Level 1.60 L 1.80-2.40 mg/dL Total Bilirubin 0.5 0.2-1.0 mg/dL Aspartate Amino Transf (AST/SGOT) 62 H 10-37 U/L Alanine Aminotransferase (ALT/SGPT) 44 12-78 U/L Alkaline Phosphatase 80 50-136 U/L Total Protein 7.1 6.0-8.3 g/dL Albumin 3.5 3.5-5.0 g/dL Prothrombin Time 10.9 9.6-11.6 SEC Prothromb Time International Ratio 1.01 0.85-1.15 Activated Partial Thromboplast Time 24.2 L 26.3-35.5 SEC Current Medications Medications (Trade) Dose Ordered Sig/Brandan Route PRN Reason Start Time Stop Time Status Last Admin Dose Admin Acetaminophen (TYLenol 325MG TAB) 650 mg Q4H PRN PO TEMPERATURE GREATER THAN 101.5 04/22/24 12:00 05/22/24 11:59 Acetaminophen/ Codeine Phosphate (TYLenol-coDEINE TAB) 1 tab Q4H PRN PO MODERATE PAIN (4-6) 04/22/24 12:00 05/22/24 11:59 Albuterol (DUOneb) 1 UDVIAL Q6H PRN IH SHORTNESS OF BREATH 04/22/24 12:30 05/22/24 12:29 Apixaban (EliquIS) 5 mg BID PO 04/23/24 21:00 05/23/24 20:59 Atorvastatin Calcium (LIPItor 10MG) 10 mg HS PO 04/22/24 21:00 04/23/24 10:48 DC 04/22/24 20:06 10 MG Atorvastatin Calcium (LIPItor 20MG) 20 mg HS PO 04/23/24 21:00 05/23/24 20:59 Famotidine (Pepcid 20mg Vial) 20 mg DAILY IV 04/23/24 09:00 05/23/24 08:59 04/23/24 08:05 20 MG Fentanyl Citrate (FENTanyl CITRate PF 50 MCG/ 1 ML 2ML VIAL) 25 mcg ONCE IVP 04/22/24 11:00 04/22/24 14:00 DC 04/22/24 11:05 25 MCG Hydralazine HCl (APRESOLine 20MG INJ) 5 mg Q6H PRN IV ADMINISTER FOR SBP > 160 04/23/24 09:30 05/23/24 09:29 04/23/24 09:32 5 MG Levothyroxine Sodium (SYNTHroid 50MCG TAB) 50 mcg DAILY@0630 PO 04/23/24 06:30 05/23/24 06:29 04/23/24 05:49 50 MCG Linagliptin (TradJENTA) 5 mg DAILY PO 04/23/24 09:00 05/23/24 08:59 04/23/24 08:05 5 MG Loratadine (LORATAdine 10 mg) 10 mg DAILY PO 04/23/24 09:00 05/23/24 08:59 04/23/24 08:05 10 MG Magnesium Sulfate 50 ml @ 0 mls/hr PROTOCOL IV 04/23/24 09:30 05/23/24 09:29 Miscellaneous Medication (Levothyroxine Sodium (Levothyroxine)) 1 cap DAILY PO 04/24/24 09:00 04/23/24 10:54 DC Miscellaneous Medication (Rosuvastatin Calcium ) 10 mg DAILY PO 04/24/24 09:00 04/23/24 10:47 DC Montelukast Sodium (SinguLAIR) 10 mg DAILY PO 04/24/24 09:00 05/24/24 08:59 Morphine Sulfate (morPHINE 2MG SYG) 2 mg Q4H PRN IVP SEVERE PAIN (7-10) 04/22/24 12:00 04/29/24 11:59 04/22/24 23:58 2 MG Multivitamins Therapeutic (Multivitamin Tablet) 1 tab DAILY PO 04/24/24 09:00 05/24/24 08:59 Ondansetron HCl (zoFRAN 4MG INJ) 4 mg Q6H PRN IVP NAUSEA/VOMITING 04/22/24 12:00 05/22/24 11:59 Pindolol (Visken) 5 mg BID PO 04/23/24 21:00 05/23/24 20:59 Simethicone (Mylicon) 80 mg BID PRN PO GI GAS 04/23/24 10:00 05/23/24 09:59 04/23/24 09:58 80 MG Vitamin B Complex/ Vit C/Folic Acid (Nephrovite Tablet) 1 cap DAILY PO 04/24/24 09:00 05/24/24 08:59 DIAGNOSTICS / RADIOLOGY: [ ] Assessment: s/p ventral hernia repair POA POD 1 recuperating well, hypercoagulable secondary to A fibb on Eliquis POA Postop intractable abdominal pain POA Acute on chronic renal failure stage 3 POA uncontrolled HTN: not POA chronic problems; AFib on anticoagulation Eliquis, chronic diastolic heart failure EF 55-60%. Stage three renal failure, hypertension, hyperlipidemia, diabetes type, vitamin- D deficiency, COPD asthma, COPD asthma PLAN: [ ] Admit to surgical floor Consult surgeon: Dr Sumit BRAMBILA s/p ventral hernia repair POA will follow postoperative recommendations per surgeon POD 1: recuperating well tolerated diet. PT to eval and treat: OOB to chair Encourage early ambulation and deep breathing exercise. IS while awake Labs in am; cbc, cmp, mag+ simethicone for bloatness, colace 100 mg po daily. Pain management for adequate pain control morphine2 mg IV every4 hours, Tylenol #3 for moderate pain. will add gabapentin 100 mg po TID avoid NSAIDS given to Stage III CRF. Replace electrolytes to keep potassium above 4 Magnesium above 2 Home medications resumed: Levothyroxine 50 mcg every morning, Tradjenta5 mg p.o. a.m. atorvastatin 10 mg every bedtime, Fall precautions DVT with SCDs GI prophylaxis Famotidine PRN: MEDICATIONS Tylenol 650 mg po every 4 hrs for fever Zofran 4 mg IV every 6 hrs for n/v Hydralazine 10 mg IV every 4 hrs systolic pressure > 160 duoneb as needed for wheezes Supportive measures: DVT ppx, GI ppx all questions answered Supervising MD: Dr. Christiansen c/d ATTESTATION BY PHYSICIAN I have seen and examined the patient. I reviewed the documentation, medical decision making, and treatment plan as noted by the mid-level provider above. I agree with the findings and plan of care. ASIA CHRISTIANSEN MD, ELIZABETH NP Apr 23, 2024 11:57
[2024-04-23] MEDS: GABApentin 100 MG CAPSULE PO SCH (15:39)
[2024-04-23] MEDS: doCUSate SODIUM 100 MG CAP PO SCH (15:39)
--- NOTE | 2024-04-23 18:46 | NUR ---
cm note met with pt and with daughter lindsey, and states are in agreement for snf level of care. prefer [facility]. choice letter obtained.
--- NOTE | 2024-04-23 19:16 | PN ---
PROGRESS NOTE Date of Service: Apr 23, 2024 Time of Service: 19:15 SUBJECTIVE: [ Patient is doing well status post ventral hernia repair. Patient is t olerating a diet. Participating in her activities of daily living. Due to the patient's age and her other comorbidities family has decided that they want patient to go to a nursing facility. That is currently being worked on by the hospitalist. ] REVIEW OF SYSTEMS PHYSICAL EXAM Awake, alert, oriented x3 Unlabored Regular rate and rhythm Abdomen soft, nontender, nondistended LABS: Laboratory: Test 04/23/24 15:48 04/22/24 15:05 04/22/24 06:07 Range/Units Whole Blood Glucose 132 H 70-110 MG/DL White Blood Count 8.6 4.8-10.8 K/uL Red Blood Count 4.29 4.00-5.50 MIL/uL Hemoglobin 12.4 12.0-16.0 g/dL Hematocrit 39.5 36-48 % Mean Corpuscular Volume 92.1 79-99 fL Mean Corpuscular Hemoglobin 28.9 27.0-33.0 pg Mean Corpuscular Hemoglobin Concent 31.4 L 32.0-36.0 g/dL Red Cell Distribution Width 14.6 11.0-15.5 % Platelet Count 155 130-400 K/uL Mean Platelet Volume 11.7 H 7.5-10.5 fL Nucleated Red Blood Cells 0.0 0.0-0.19 % Sodium Level 143 136-145 mmol/L Potassium Level 4.6 3.5-5.1 mmol/L Chloride Level 107 101-111 mmol/L Carbon Dioxide Level 27 21-32 mmol/L Blood Urea Nitrogen 26 H 7-18 mg/dL Creatinine 1.4 H 0.5-1.0 mg/dL Glomerular Filtration Rate Calc 36 >90 mL/min Random Glucose 175 H 70-105 mg/dL Total Calcium 8.4 L 8.5-10.1 mg/dL Magnesium Level 1.60 L 1.80-2.40 mg/dL Total Bilirubin 0.5 0.2-1.0 mg/dL Aspartate Amino Transf (AST/SGOT) 62 H 10-37 U/L Alanine Aminotransferase (ALT/SGPT) 44 12-78 U/L Alkaline Phosphatase 80 50-136 U/L Total Protein 7.1 6.0-8.3 g/dL Albumin 3.5 3.5-5.0 g/dL Prothrombin Time 10.9 9.6-11.6 SEC Prothromb Time International Ratio 1.01 0.85-1.15 Activated Partial Thromboplast Time 24.2 L 26.3-35.5 SEC DIAGNOSTICS / RADIOLOGY: [ ] ASSESSMENT: [ Patient doing well post surgery ] PLAN: [ Long discussion was held with the patient and her family. Note one patient lifting anything greater than 10 lb for 2-3 months. Otherwise she can tolerate a regular diet, participate in activities of daily living. Since patient wants to go to a nursing facility she will be in the hospital till case management has arranged it. Once patient has been discharged from the hospital should follow up with me in two weeks.] JANI PUCKETT MD Apr 23, 2024 19:16
[2024-04-23] MEDS: APIXaban 5 MG TABLET PO SCH (19:49)
[2024-04-23] MEDS: PINDOLOL 5 MG TAB PO SCH (19:49)
[2024-04-23] MEDS: atorVAStatin 20 MG TABLET PO SCH (19:49)
[2024-04-23] MEDS: acetaMINOPHEN WITH coDEINE 1 TAB TAB PO PRN (19:50)
[2024-04-24] VITALS (8 sets, daily range): BP systolic 108–135; BP diastolic 58–70; PULSE 82–94; RESP 18–20; TEMP 98.2–99.3; O2SAT 92–95
[2024-04-24 05:37] LABS: BASOPHILS # (AUTO) 0.04 K/uL (0.00-0.20); BASOPHILS % (AUTO) 0.4 % (0.0-5.0); EOSINOPHILS # (AUTO) 0.06 K/uL (0.00-0.70); EOSINOPHILS % (AUTO) 0.6 % (0.0-8.0); HEMATOCRIT 34.8 % (36-48); IMMATURE GRANULOCYTE ABSOLUTE 0.05 K/uL (0-1); LYMPHOCYTES # (AUTO) 2.2 K/uL (1.0-4.8); LYMPHOCYTES % (AUTO) 22.1 % (21.0-51.0); MEAN CORPUSCULAR HEMOGLOBIN 28.9 pg (27.0-33.0); MEAN CORPUSCULAR HGB CONC 31.9 g/dL (32.0-36.0); MEAN CORPUSCULAR VOLUME 90.6 fL (79-99); MONOCYTES # (AUTO) 0.9 K/uL (0.1-1.0); MONOCYTES % (AUTO) 9.3 % (3.0-13.0); NEUTROPHILS # (AUTO) 6.6 K/uL (1.8-7.7); NEUTROPHILS % (AUTO) 67.1 % (40.0-77.0); PLATELET COUNT (AUTO) 143 K/uL (130-400); RED BLOOD CELL COUNT(AUTO) 3.84 MIL/uL (4.00-5.50); RED CELL DISTRIBUTION WIDTH 14.8 % (11.0-15.5); WHITE BLOOD COUNT (AUTO) 9.8 K/uL (4.8-10.8)
[2024-04-24 06:01] LABS: ALBUMIN 2.9 g/dL (3.5-5.0); CREATININE 1.4 mg/dL (0.5-1.0); MAGNESIUM 1.8 mg/dL (1.80-2.40); POTASSIUM 4.2 mmol/L (3.5-5.1); TOTAL PROTEIN, SERUM 6.3 g/dL (6.0-8.3)
[2024-04-24] MEDS: MAGNESIUM 2GM PREMIX 50ML 50 ML IV SCH (07:25)
[2024-04-24] MEDS ORDERED: NON-FORMULARY MEDICATION 1 EACH (Rosuvastatin Calcium 10 MG) PO SCH (09:00)
[2024-04-24] MEDS ORDERED: NON-FORMULARY MEDICATION 1 EACH (Levothyroxine Sodium (Levothyroxine) 1 CAP) PO SCH (09:00)
--- NOTE | 2024-04-24 09:09 | PN ---
[facility] PROGRESS NOTE Date of Service: Apr 24, 2024 Time of Service: 09:05 SUBJECTIVE: [ ] This is a 88-year-old female who underwent outpatient laparoscopic ventral hernia repair with mesh per Dr. Arana. During the course of recovery patient was having severe abdominal pain postop. Patient is was given fentanyl in day surgery brought down pain to 3/10. Patient will be admitted for observation for pain management. April 23, 2024. Patient is seen and examined with Dr. Christiansen reviewed chart vital signs blood pressure was elevated systolic 176 POD 1: recuperating well . tolerating diet no n/v: OOB to chair: reports pain to surgical sites, will add gabpentin 100 mg po TID. Denied chest pain or shortness on breath. 1200: Patient daughter is requesting IP rehab notified corrections caseworker. 04/24/24 postop day two recuperating well physical therapy continues to work with patient's. Awaiting for nursing and rehab family requested [facility]. Reviewed chart. Patient is fully awake alert oriented x3. blood pressure much controlled today. Continue with pain to surgical site. Encouraged patient to continue ambulating as tolerated deep breathing exercise. REVIEW OF SYSTEMS CONSTITUTIONAL: Denies fevers, chills, or night sweats. No unintentional weight loss reported. NEUROLOGICAL: Denies headache, amaurosis fugax, motor weakness, sensory deficit, vertigo/spinning sensation, gait abnormalities, or tremors. ENT: No hearing loss, otalgia, otorrhea, rhinitis, rhinorrhea, hoarseness, or sore throat. CARDIOVASCULAR: Denies any exertional angina, dyspnea on exertion, orthopnea, paroxysmal nocturnal dyspnea, palpitations, life-threatening arrhythmias, claudication. PULMONARY: Denies any shortness of breath, cough, phlegm/sputum, hemoptysis, pleuritic chest pain. SLEEP: Denies morning headaches, daytime somnolence or napping. Denies difficulty falling asleep, staying asleep, waking from sleep. Denies knowledge of snoring. GASTROINTESTINAL: Denies any type of dysphagia to either liquids or solids. Denies nausea, vomiting, pyrosis, early satiety, abdominal pain, diarrhea, constipation, or changes in stool consistency or caliber. Denies coffee-ground emesis, hematemesis, hematochezia, or melanotic stools. GENITOURINARY: Denies frequency, urgency, nocturia, hematuria or incontinence (Storage/Irritative symptoms.) Low urinary stream, straining to void, urinary intermittency or hesitancy, splitting of the voiding stream, terminal dribbling. ENDOCRINOLOGIC: Denies polyuria, polydipsia, polyphagia or heat/cold intolerances. HEMATOLOGIC: Denies thrombophilia/previous clots, or coagulopathy/bleeding disorders. ONCOLOGIC: Denies personal history of malignancy. DERMATOLOGIC: Denies rashes or pruritus. PSYCHIATRIC: Denies any suicidal or homicidal ideation. Denies hallucinations. PHYSICAL EXAM GENERAL APPEARANCE: The patient is awake, alert, and oriented, in no acute cardiopulmonary distress. NEUROLOGICAL: Cranial nerves II-XII grossly intact. Motor is 5/5 in bilateral upper and lower extremities proximal to distal. No sensory deficits. HEENT: Face is symmetric. Pupils are equal and reactive. Extraocular movements are intact. NECK: Supple. No JVD. No thyromegaly. No submental, submandibular, pre- /postauricular, occipital or supraclavicular lymphadenopathy. CHEST: Normal chest expansion. No Telemetry. LUNGS: Absence of any rales, rhonchi or any wheezing. CARDIOVASCULAR: Regular. S1 and S2 normal. No appreciable rubs, murmurs or gallops. ABDOMEN: Soft, nontender, and nondistended. There is no rebound, voluntary guarding, or rigidity. : Deferred. No Elliott. EXTREMITIES: Non-edematous and not cyanotic. No clubbing. Good capillary refill. SKIN: No skin breakdown. Vital Signs (last 8hr) Date Time Temp Pulse Resp B/P (MAP) Pulse Ox O2 Delivery O2 Flow Rate FiO2 04/24/24 08:00 99.0 89 18 123/59 94 Room Air 21 04/24/24 04:26 98.6 91 18 135/64 92 Room Air LABS: Laboratory: Test 04/24/24 06:01 04/24/24 05:30 Range/Units Whole Blood Glucose 124 H 70-110 MG/DL White Blood Count 9.8 4.8-10.8 K/uL Red Blood Count 3.84 L 4.00-5.50 MIL/uL Hemoglobin 11.1 L 12.0-16.0 g/dL Hematocrit 34.8 L 36-48 % Mean Corpuscular Volume 90.6 79-99 fL Mean Corpuscular Hemoglobin 28.9 27.0-33.0 pg Mean Corpuscular Hemoglobin Concent 31.9 L 32.0-36.0 g/dL Red Cell Distribution Width 14.8 11.0-15.5 % Platelet Count 143 130-400 K/uL Mean Platelet Volume 11.0 H 7.5-10.5 fL Immature Granulocyte % (Auto) 0.5 0-1 % Neutrophils (%) (Auto) 67.1 40.0-77.0 % Lymphocytes (%) (Auto) 22.1 21.0-51.0 % Monocytes (%) (Auto) 9.3 3.0-13.0 % Eosinophils (%) (Auto) 0.6 0.0-8.0 % Basophils (%) (Auto) 0.4 0.0-5.0 % Neutrophils # (Auto) 6.6 1.8-7.7 K/uL Lymphocytes # (Auto) 2.2 1.0-4.8 K/uL Monocytes # (Auto) 0.9 0.1-1.0 K/uL Eosinophils # (Auto) 0.06 0.00-0.70 K/uL Basophils # (Auto) 0.04 0.00-0.20 K/uL Absolute Immature Granulocyte (auto 0.05 0-1 K/uL Nucleated Red Blood Cells 0.0 0.0-0.19 % Sodium Level 141 136-145 mmol/L Potassium Level 4.2 3.5-5.1 mmol/L Chloride Level 105 101-111 mmol/L Carbon Dioxide Level 29 21-32 mmol/L Blood Urea Nitrogen 25 H 7-18 mg/dL Creatinine 1.4 H 0.5-1.0 mg/dL Glomerular Filtration Rate Calc 36 >90 mL/min Random Glucose 118 H 70-105 mg/dL Total Calcium 8.6 8.5-10.1 mg/dL Magnesium Level 1.80 1.80-2.40 mg/dL Total Bilirubin 1.0 0.2-1.0 mg/dL Aspartate Amino Transf (AST/SGOT) 39 H 10-37 U/L Alanine Aminotransferase (ALT/SGPT) 22 12-78 U/L Alkaline Phosphatase 70 50-136 U/L Total Protein 6.3 6.0-8.3 g/dL Albumin 2.9 L 3.5-5.0 g/dL Current Medications Medications (Trade) Dose Ordered Sig/Brandan Route PRN Reason Start Time Stop Time Status Last Admin Dose Admin Acetaminophen (TYLenol 325MG TAB) 650 mg Q4H PRN PO TEMPERATURE GREATER THAN 101.5 04/22/24 12:00 05/22/24 11:59 Acetaminophen/ Codeine Phosphate (TYLenol-coDEINE TAB) 1 tab Q4H PRN PO MODERATE PAIN (4-6) 04/22/24 12:00 05/22/24 11:59 04/24/24 06:52 1 TAB Albuterol (DUOneb) 1 UDVIAL Q6H PRN IH SHORTNESS OF BREATH 04/22/24 12:30 05/22/24 12:29 Apixaban (EliquIS) 5 mg BID PO 04/23/24 21:00 05/23/24 20:59 04/23/24 19:49 5 MG Atorvastatin Calcium (LIPItor 10MG) 10 mg HS PO 04/22/24 21:00 04/23/24 10:48 DC 04/22/24 20:06 10 MG Atorvastatin Calcium (LIPItor 20MG) 20 mg HS PO 04/23/24 21:00 05/23/24 20:59 04/23/24 19:49 20 MG Docusate Sodium (COLace 100MG CAP) 100 mg DAILY PO 04/23/24 12:00 05/23/24 11:59 04/23/24 15:39 100 MG Famotidine (Pepcid 20mg Vial) 20 mg DAILY IV 04/23/24 09:00 05/23/24 08:59 04/23/24 08:05 20 MG Fentanyl Citrate (FENTanyl CITRate PF 50 MCG/ 1 ML 2ML VIAL) 25 mcg ONCE IVP 04/22/24 11:00 04/22/24 14:00 DC 04/22/24 11:05 25 MCG Gabapentin (NEURontin 100 mg CAP) 100 mg TID PO 04/23/24 14:00 05/23/24 13:59 04/23/24 19:49 100 MG Hydralazine HCl (APRESOLine 20MG INJ) 5 mg Q6H PRN IV ADMINISTER FOR SBP > 160 04/23/24 09:30 05/23/24 09:29 04/23/24 09:32 5 MG Levothyroxine Sodium (SYNTHroid 50MCG TAB) 50 mcg DAILY@0630 PO 04/23/24 06:30 05/23/24 06:29 04/24/24 06:33 50 MCG Linagliptin (TradJENTA) 5 mg DAILY PO 04/23/24 09:00 05/23/24 08:59 04/23/24 08:05 5 MG Loratadine (LORATAdine 10 mg) 10 mg DAILY PO 04/23/24 09:00 05/23/24 08:59 04/23/24 08:05 10 MG Magnesium Sulfate 50 ml @ 0 mls/hr PROTOCOL IV 04/23/24 09:30 05/23/24 09:29 04/24/24 07:25 1.8 MLS/HR Miscellaneous Medication (Levothyroxine Sodium (Levothyroxine)) 1 cap DAILY PO 04/24/24 09:00 04/23/24 10:54 DC Miscellaneous Medication (Rosuvastatin Calcium ) 10 mg DAILY PO 04/24/24 09:00 04/23/24 10:47 DC Montelukast Sodium (SinguLAIR) 10 mg DAILY PO 04/24/24 09:00 05/24/24 08:59 Morphine Sulfate (morPHINE 2MG SYG) 2 mg Q4H PRN IVP SEVERE PAIN (7-10) 04/22/24 12:00 04/29/24 11:59 04/22/24 23:58 2 MG Multivitamins Therapeutic (Multivitamin Tablet) 1 tab DAILY PO 04/24/24 09:00 05/24/24 08:59 Ondansetron HCl (zoFRAN 4MG INJ) 4 mg Q6H PRN IVP NAUSEA/VOMITING 04/22/24 12:00 05/22/24 11:59 Pindolol (Visken) 5 mg BID PO 04/23/24 21:00 05/23/24 20:59 04/23/24 19:49 5 MG Simethicone (Mylicon) 80 mg BID PRN PO GI GAS 04/23/24 10:00 05/23/24 09:59 04/23/24 09:58 80 MG Vitamin B Complex/ Vit C/Folic Acid (Nephrovite Tablet) 1 cap DAILY PO 04/24/24 09:00 05/24/24 08:59 DIAGNOSTICS / RADIOLOGY: [ ] Assessment: s/p ventral hernia repair POA POD 1 recuperating well, hypercoagulable secondary to A fibb on Eliquis POA Postop intractable abdominal pain POA Acute on chronic renal failure stage 3 POA uncontrolled HTN: not POA chronic problems; AFib on anticoagulation Eliquis, chronic diastolic heart failure EF 55-60%. Stage three renal failure, hypertension, hyperlipidemia, diabetes type, vitamin- D deficiency, COPD asthma, COPD asthma PLAN: [ ] Admit to surgical floor Consult surgeon: Dr Sumit BRAMBILA s/p ventral hernia repair POA will follow postoperative recommendations per surgeon POD 1: recuperating well tolerated diet. PT to eval and treat: OOB to chair Encourage early ambulation and deep breathing exercise. IS while awake Labs in am; cbc, cmp, mag+ simethicone for bloatness, colace 100 mg po daily. Pain management for adequate pain control morphine2 mg IV every4 hours, Tylenol #3 for moderate pain. will add gabapentin 100 mg po TID avoid NSAIDS given to Stage III CRF. Replace electrolytes to keep potassium above 4 Magnesium above 2 Home medications resumed: Levothyroxine 50 mcg every morning, Tradjenta5 mg p.o. a.m. atorvastatin 10 mg every bedtime, Fall precautions DVT with SCDs GI prophylaxis Famotidine PRN: MEDICATIONS Tylenol 650 mg po every 4 hrs for fever Zofran 4 mg IV every 6 hrs for n/v Hydralazine 10 mg IV every 4 hrs systolic pressure > 160 duoneb as needed for wheezes Supportive measures: DVT ppx, GI ppx all questions answered case management: [facility]: referral Supervising MD: Dr. Alexnadre Deal c/d ATTESTATION BY PHYSICIAN I have seen and examined the patient. I reviewed the documentation, medical decision making, and treatment plan as noted by the resident provider above. I agree with the findings and plan of care. Alexandre Deal MD, ELIZABETH NP Apr 24, 2024 09:09
--- NOTE | 2024-04-24 09:20 | NUR ---
CM NOTE REFERRAL FAXED TO [facility] AND ADVISED [facility]. FOR [facility]
[2024-04-24] MEDS: MULTIVITAMIN TABLET PO SCH (09:34)
[2024-04-24] MEDS: monteLUKAST sodIUM 10 MG TAB PO SCH (09:34)
[2024-04-24] MEDS: Vitamin B Complex/Vit C/Folic Acid PO SCH (09:35)
[2024-04-25] VITALS (10 sets, daily range): BP systolic 127–141; BP diastolic 57–65; PULSE 85–103; RESP 16–20; TEMP 98–99.7; O2SAT 93–97
[2024-04-25 04:44] LABS: BASOPHILS # (AUTO) 0.04 K/uL (0.00-0.20); BASOPHILS % (AUTO) 0.4 % (0.0-5.0); EOSINOPHILS # (AUTO) 0.15 K/uL (0.00-0.70); EOSINOPHILS % (AUTO) 1.7 % (0.0-8.0); HEMATOCRIT 33.6 % (36-48); IMMATURE GRANULOCYTE ABSOLUTE 0.08 K/uL (0-1); LYMPHOCYTES # (AUTO) 2.3 K/uL (1.0-4.8); LYMPHOCYTES % (AUTO) 24.8 % (21.0-51.0); MEAN CORPUSCULAR HEMOGLOBIN 28.9 pg (27.0-33.0); MEAN CORPUSCULAR HGB CONC 31.5 g/dL (32.0-36.0); MEAN CORPUSCULAR VOLUME 91.6 fL (79-99); MONOCYTES # (AUTO) 0.9 K/uL (0.1-1.0); MONOCYTES % (AUTO) 9.6 % (3.0-13.0); NEUTROPHILS # (AUTO) 5.7 K/uL (1.8-7.7); NEUTROPHILS % (AUTO) 62.6 % (40.0-77.0); PLATELET COUNT (AUTO) 143 K/uL (130-400); RED BLOOD CELL COUNT(AUTO) 3.67 MIL/uL (4.00-5.50); RED CELL DISTRIBUTION WIDTH 14.6 % (11.0-15.5); WHITE BLOOD COUNT (AUTO) 9.1 K/uL (4.8-10.8)
[2024-04-25 04:54] LABS: CREATININE 1.5 mg/dL (0.5-1.0); MAGNESIUM 2.2 mg/dL (1.80-2.40); POTASSIUM 4.2 mmol/L (3.5-5.1)
--- NOTE | 2024-04-25 11:43 | PN ---
[facility] PROGRESS NOTE Date of Service: Apr 25, 2024 Time of Service: 11:42 SUBJECTIVE: [ ] This is a 88-year-old female who underwent outpatient laparoscopic ventral hernia repair with mesh per Dr. Arana. During the course of recovery patient was having severe abdominal pain postop. Patient is was given fentanyl in day surgery brought down pain to 3/10. Patient will be admitted for observation for pain management. April 23, 2024. Patient is seen and examined with Dr. Christiansen reviewed chart vital signs blood pressure was elevated systolic 176 POD 1: recuperating well . tolerating diet no n/v: OOB to chair: reports pain to surgical sites, will add gabpentin 100 mg po TID. Denied chest pain or shortness on breath. 1200: Patient daughter is requesting IP rehab notified family caseworker. 04/24/24 postop day two recuperating well physical therapy continues to work with patient's. Awaiting for nursing and rehab family requested [facility]. Reviewed chart. Patient is fully awake alert oriented x3. blood pressure much controlled today. Continue with pain to surgical site. Encouraged patient to continue ambulating as tolerated deep breathing exercise. 04/25/2024. Patient is recuperating well no nausea no vomiting. Spoke with surgeon okay for patient to be placed in rehab. Patient continues to work with physical therapy. Out of bed to chair with minimal pain with exertion. Denied chest pain or shortness for breath waiting for placement. REVIEW OF SYSTEMS CONSTITUTIONAL: Denies fevers, chills, or night sweats. No unintentional weight loss reported. NEUROLOGICAL: Denies headache, amaurosis fugax, motor weakness, sensory deficit, vertigo/spinning sensation, gait abnormalities, or tremors. ENT: No hearing loss, otalgia, otorrhea, rhinitis, rhinorrhea, hoarseness, or sore throat. CARDIOVASCULAR: Denies any exertional angina, dyspnea on exertion, orthopnea, paroxysmal nocturnal dyspnea, palpitations, life-threatening arrhythmias, claudication. PULMONARY: Denies any shortness of breath, cough, phlegm/sputum, hemoptysis, pleuritic chest pain. SLEEP: Denies morning headaches, daytime somnolence or napping. Denies difficulty falling asleep, staying asleep, waking from sleep. Denies knowledge of snoring. GASTROINTESTINAL: Denies any type of dysphagia to either liquids or solids. Denies nausea, vomiting, pyrosis, early satiety, abdominal pain, diarrhea, constipation, or changes in stool consistency or caliber. Denies coffee-ground emesis, hematemesis, hematochezia, or melanotic stools. GENITOURINARY: Denies frequency, urgency, nocturia, hematuria or incontinence (Storage/Irritative symptoms.) Low urinary stream, straining to void, urinary intermittency or hesitancy, splitting of the voiding stream, terminal dribbling. ENDOCRINOLOGIC: Denies polyuria, polydipsia, polyphagia or heat/cold intolerances. HEMATOLOGIC: Denies thrombophilia/previous clots, or coagulopathy/bleeding disorders. ONCOLOGIC: Denies personal history of malignancy. DERMATOLOGIC: Denies rashes or pruritus. PSYCHIATRIC: Denies any suicidal or homicidal ideation. Denies hallucinations. PHYSICAL EXAM GENERAL APPEARANCE: The patient is awake, alert, and oriented, in no acute cardiopulmonary distress. NEUROLOGICAL: Cranial nerves II-XII grossly intact. Motor is 5/5 in bilateral upper and lower extremities proximal to distal. No sensory deficits. HEENT: Face is symmetric. Pupils are equal and reactive. Extraocular movements are intact. NECK: Supple. No JVD. No thyromegaly. No submental, submandibular, pre-/postauricular, occipital or supraclavicular lymphadenopathy. CHEST: Normal chest expansion. No Telemetry. LUNGS: Absence of any rales, rhonchi or any wheezing. CARDIOVASCULAR: Regular. S1 and S2 normal. No appreciable rubs, murmurs or gallops. ABDOMEN: Soft, nontender, and nondistended. There is no rebound, voluntary guarding, or rigidity. : Deferred. No Elliott. EXTREMITIES: Non-edematous and not cyanotic. No clubbing. Good capillary refill. SKIN: No skin breakdown. Vital Signs (last 8hr) Date Time Temp Pulse Resp B/P (MAP) Pulse Ox O2 Delivery O2 Flow Rate FiO2 04/25/24 08:00 93 Room Air* 0 04/25/24 07:58 98.8 85 16 141/65 93 Room Air 04/25/24 03:45 98.8 89 18 128/57 95 Room Air LABS: Laboratory: Test 04/25/24 05:35 04/25/24 04:18 04/24/24 05:30 Range/Units Whole Blood Glucose 112 H 70-110 MG/DL White Blood Count 9.1 4.8-10.8 K/uL Red Blood Count 3.67 L 4.00-5.50 MIL/uL Hemoglobin 10.6 L 12.0-16.0 g/dL Hematocrit 33.6 L 36-48 % Mean Corpuscular Volume 91.6 79-99 fL Mean Corpuscular Hemoglobin 28.9 27.0-33.0 pg Mean Corpuscular Hemoglobin Concent 31.5 L 32.0-36.0 g/dL Red Cell Distribution Width 14.6 11.0-15.5 % Platelet Count 143 130-400 K/uL Mean Platelet Volume 11.9 H 7.5-10.5 fL Immature Granulocyte % (Auto) 0.9 0-1 % Neutrophils (%) (Auto) 62.6 40.0-77.0 % Lymphocytes (%) (Auto) 24.8 21.0-51.0 % Monocytes (%) (Auto) 9.6 3.0-13.0 % Eosinophils (%) (Auto) 1.7 0.0-8.0 % Basophils (%) (Auto) 0.4 0.0-5.0 % Neutrophils # (Auto) 5.7 1.8-7.7 K/uL Lymphocytes # (Auto) 2.3 1.0-4.8 K/uL Monocytes # (Auto) 0.9 0.1-1.0 K/uL Eosinophils # (Auto) 0.15 0.00-0.70 K/uL Basophils # (Auto) 0.04 0.00-0.20 K/uL Absolute Immature Granulocyte (auto 0.08 0-1 K/uL Nucleated Red Blood Cells 0.0 0.0-0.19 % Sodium Level 139 136-145 mmol/L Potassium Level 4.2 3.5-5.1 mmol/L Chloride Level 104 101-111 mmol/L Carbon Dioxide Level 27 21-32 mmol/L Blood Urea Nitrogen 30 H 7-18 mg/dL Creatinine 1.5 H 0.5-1.0 mg/dL Glomerular Filtration Rate Calc 33 >90 mL/min Random Glucose 114 H 70-105 mg/dL Total Calcium 8.2 L 8.5-10.1 mg/dL Magnesium Level 2.20 1.80-2.40 mg/dL Total Bilirubin 1.0 0.2-1.0 mg/dL Aspartate Amino Transf (AST/SGOT) 39 H 10-37 U/L Alanine Aminotransferase (ALT/SGPT) 22 12-78 U/L Alkaline Phosphatase 70 50-136 U/L Total Protein 6.3 6.0-8.3 g/dL Albumin 2.9 L 3.5-5.0 g/dL Current Medications Medications (Trade) Dose Ordered Sig/Brandan Route PRN Reason Start Time Stop Time Status Last Admin Dose Admin Acetaminophen (TYLenol 325MG TAB) 650 mg Q4H PRN PO TEMPERATURE GREATER THAN 101.5 04/22/24 12:00 05/22/24 11:59 Acetaminophen/ Codeine Phosphate (TYLenol-coDEINE TAB) 1 tab Q4H PRN PO MODERATE PAIN (4-6) 04/22/24 12:00 05/22/24 11:59 04/24/24 06:52 1 TAB Albuterol (DUOneb) 1 UDVIAL Q6H PRN IH SHORTNESS OF BREATH 04/22/24 12:30 05/22/24 12:29 Apixaban (EliquIS) 5 mg BID PO 04/23/24 21:00 05/23/24 20:59 04/25/24 09:26 5 MG Atorvastatin Calcium (LIPItor 10MG) 10 mg HS PO 04/22/24 21:00 04/23/24 10:48 DC 04/22/24 20:06 10 MG Atorvastatin Calcium (LIPItor 20MG) 20 mg HS PO 04/23/24 21:00 05/23/24 20:59 04/24/24 19:38 20 MG Docusate Sodium (COLace 100MG CAP) 100 mg DAILY PO 04/23/24 12:00 05/23/24 11:59 04/25/24 09:25 100 MG Famotidine (Pepcid 20mg Vial) 20 mg DAILY IV 04/23/24 09:00 05/23/24 08:59 04/25/24 09:25 20 MG Fentanyl Citrate (FENTanyl CITRate PF 50 MCG/ 1 ML 2ML VIAL) 25 mcg ONCE IVP 04/22/24 11:00 04/22/24 14:00 DC 04/22/24 11:05 25 MCG Gabapentin (NEURontin 100 mg CAP) 100 mg TID PO 04/23/24 14:00 05/23/24 13:59 04/25/24 09:26 100 MG Hydralazine HCl (APRESOLine 20MG INJ) 5 mg Q6H PRN IV ADMINISTER FOR SBP > 160 04/23/24 09:30 05/23/24 09:29 04/23/24 09:32 5 MG Levothyroxine Sodium (SYNTHroid 50MCG TAB) 50 mcg DAILY@0630 PO 04/23/24 06:30 05/23/24 06:29 04/25/24 05:41 50 MCG Linagliptin (TradJENTA) 5 mg DAILY PO 04/23/24 09:00 05/23/24 08:59 04/25/24 09:26 5 MG Loratadine (LORATAdine 10 mg) 10 mg DAILY PO 04/23/24 09:00 05/23/24 08:59 04/25/24 09:26 10 MG Magnesium Sulfate 50 ml @ 0 mls/hr PROTOCOL IV 04/23/24 09:30 05/23/24 09:29 04/24/24 07:25 1.8 MLS/HR Miscellaneous Medication (Levothyroxine Sodium (Levothyroxine)) 1 cap DAILY PO 04/24/24 09:00 04/23/24 10:54 DC Miscellaneous Medication (Rosuvastatin Calcium ) 10 mg DAILY PO 04/24/24 09:00 04/23/24 10:47 DC Montelukast Sodium (SinguLAIR) 10 mg DAILY PO 04/24/24 09:00 05/24/24 08:59 04/25/24 09:26 10 MG Morphine Sulfate (morPHINE 2MG SYG) 2 mg Q4H PRN IVP SEVERE PAIN (7-10) 04/22/24 12:00 04/29/24 11:59 04/22/24 23:58 2 MG Multivitamins Therapeutic (Multivitamin Tablet) 1 tab DAILY PO 04/24/24 09:00 05/24/24 08:59 04/25/24 09:26 1 TAB Ondansetron HCl (zoFRAN 4MG INJ) 4 mg Q6H PRN IVP NAUSEA/VOMITING 04/22/24 12:00 05/22/24 11:59 Pindolol (Visken) 5 mg BID PO 04/23/24 21:00 05/23/24 20:59 04/25/24 09:27 5 MG Simethicone (Mylicon) 80 mg BID PRN PO GI GAS 04/23/24 10:00 05/23/24 09:59 04/23/24 09:58 80 MG Vitamin B Complex/ Vit C/Folic Acid (Nephrovite Tablet) 1 cap DAILY PO 04/24/24 09:00 05/24/24 08:59 04/25/24 09:26 1 CAP DIAGNOSTICS / RADIOLOGY: [ ] Assessment: s/p ventral hernia repair POA POD 1 recuperating well, hypercoagulable secondary to A fibb on Eliquis POA Postop intractable abdominal pain POA Acute on chronic renal failure stage 3 POA uncontrolled HTN: not POA chronic problems; AFib on anticoagulation Eliquis, chronic diastolic heart failure EF 55-60%. Stage three renal failure, hypertension, hyperlipidemia, diabetes type, vitamin- D deficiency, COPD asthma, COPD asthma PLAN: [ ] Admit to surgical floor Consult surgeon: Dr Sumit BRAMBILA s/p ventral hernia repair POA will follow postoperative recommendations per surgeon POD 3: recuperating well tolerated diet. PT to eval and treat: OOB to chair Encourage early ambulation and deep breathing exercise. IS while awake Labs in am; cbc, cmp, mag+ simethicone for bloatness, colace 100 mg po daily. Pain management for adequate pain control morphine2 mg IV every4 hours, Tylenol #3 for moderate pain. will add gabapentin 100 mg po TID avoid NSAIDS given to Stage III CRF. Replace electrolytes to keep potassium above 4 Magnesium above 2 Home medications resumed: Levothyroxine 50 mcg every morning, Tradjenta5 mg p.o. a.m. atorvastatin 10 mg every bedtime, Fall precautions DVT with SCDs GI prophylaxis Famotidine PRN: MEDICATIONS Tylenol 650 mg po every 4 hrs for fever Zofran 4 mg IV every 6 hrs for n/v Hydralazine 10 mg IV every 4 hrs systolic pressure > 160 duoneb as needed for wheezes Supportive measures: DVT ppx, GI ppx all questions answered case management: [facility]: referral Supervising MD: Dr. Alexandre Deal c/d ATTESTATION BY PHYSICIAN I have seen and examined the patient. I reviewed the documentation, medical decision making, and treatment plan as noted by the resident provider above. I agree with the findings and plan of care. Alexandre Deal MD, [facility] NP Apr 25, 2024 11:43
--- NOTE | 2024-04-25 15:17 | NUR ---
Placed 20g on Right forearm.
[2024-04-25] MEDS ORDERED: LACTULOSE 20 GM/30 ML UDCUP PO PRN (16:00)
[2024-04-25] MEDS: LACTULOSE 20 GM/30 ML UDCUP PO SCH (16:36)
[2024-04-25] MEDS: IpraTROPium/alBUTERol SULFATE 3 ML SOLUTION IH PRN (20:41)
[2024-04-26] VITALS (12 sets, daily range): BP systolic 119–139; BP diastolic 50–76; PULSE 77–102; RESP 18–22; TEMP 97.8–98.8; O2SAT 92–95
[2024-04-26 04:09] LABS: BASOPHILS # (AUTO) 0.04 K/uL (0.00-0.20); BASOPHILS % (AUTO) 0.5 % (0.0-5.0); EOSINOPHILS # (AUTO) 0.16 K/uL (0.00-0.70); EOSINOPHILS % (AUTO) 1.9 % (0.0-8.0); HEMATOCRIT 33.2 % (36-48); IMMATURE GRANULOCYTE ABSOLUTE 0.05 K/uL (0-1); LYMPHOCYTES # (AUTO) 1.9 K/uL (1.0-4.8); LYMPHOCYTES % (AUTO) 21.8 % (21.0-51.0); MEAN CORPUSCULAR HEMOGLOBIN 29.4 pg (27.0-33.0); MEAN CORPUSCULAR HGB CONC 31.9 g/dL (32.0-36.0); MONOCYTES # (AUTO) 0.8 K/uL (0.1-1.0); MONOCYTES % (AUTO) 9.6 % (3.0-13.0); NEUTROPHILS # (AUTO) 5.6 K/uL (1.8-7.7); NEUTROPHILS % (AUTO) 65.6 % (40.0-77.0); PLATELET COUNT (AUTO) 147 K/uL (130-400); RED BLOOD CELL COUNT(AUTO) 3.61 MIL/uL (4.00-5.50); RED CELL DISTRIBUTION WIDTH 14.6 % (11.0-15.5); WHITE BLOOD COUNT (AUTO) 8.5 K/uL (4.8-10.8)
[2024-04-26 05:01] LABS: ALBUMIN 2.5 g/dL (3.5-5.0); BILIRUBIN,TOTAL 0.8 mg/dL (0.2-1.0); CREATININE 1.4 mg/dL (0.5-1.0); POTASSIUM 4.3 mmol/L (3.5-5.1); TOTAL PROTEIN, SERUM 6.1 g/dL (6.0-8.3)
--- NOTE | 2024-04-26 09:14 | PN ---
[facility] PROGRESS NOTE Date of Service: Apr 26, 2024 Time of Service: 09:13 SUBJECTIVE: [ ] This is a 88-year-old female who underwent outpatient laparoscopic ventral hernia repair with mesh per Dr. Arana. During the course of recovery patient was having severe abdominal pain postop. Patient is was given fentanyl in day surgery brought down pain to 3/10. Patient will be admitted for observation for pain management. April 23, 2024. Patient is seen and examined with Dr. Christiansen reviewed chart vital signs blood pressure was elevated systolic 176 POD 1: recuperating well . tolerating diet no n/v: OOB to chair: reports pain to surgical sites, will add gabpentin 100 mg po TID. Denied chest pain or shortness on breath. 1200: Patient daughter is requesting IP rehab notified case management rn. 04/24/24 postop day two recuperating well physical therapy continues to work with patient's. Awaiting for nursing and rehab family requested [facility]. Reviewed chart. Patient is fully awake alert oriented x3. blood pressure much controlled today. Continue with pain to surgical site. Encouraged patient to continue ambulating as tolerated deep breathing exercise. 04/25/2024. Patient is recuperating well no nausea no vomiting. Spoke with surgeon okay for patient to be placed in rehab. Patient continues to work with physical therapy. Out of bed to chair with minimal pain with exertion. Denied chest pain or shortness for breath waiting for placement. 04/26/24 patient is seen and examined with Dr. Christiansen. Recuperating well no nausea no vomiting. Continues to work with physical therapy. Case management for [facility] possible today. REVIEW OF SYSTEMS CONSTITUTIONAL: Denies fevers, chills, or night sweats. No unintentional weight loss reported. NEUROLOGICAL: Denies headache, amaurosis fugax, motor weakness, sensory deficit, vertigo/spinning sensation, gait abnormalities, or tremors. ENT: No hearing loss, otalgia, otorrhea, rhinitis, rhinorrhea, hoarseness, or sore throat. CARDIOVASCULAR: Denies any exertional angina, dyspnea on exertion, orthopnea, paroxysmal nocturnal dyspnea, palpitations, life-threatening arrhythmias, claudication. PULMONARY: Denies any shortness of breath, cough, phlegm/sputum, hemoptysis, pleuritic chest pain. SLEEP: Denies morning headaches, daytime somnolence or napping. Denies difficulty falling asleep, staying asleep, waking from sleep. Denies knowledge of snoring. GASTROINTESTINAL: Denies any type of dysphagia to either liquids or solids. Denies nausea, vomiting, pyrosis, early satiety, abdominal pain, diarrhea, constipation, or changes in stool consistency or caliber. Denies coffee-ground emesis, hematemesis, hematochezia, or melanotic stools. GENITOURINARY: Denies frequency, urgency, nocturia, hematuria or incontinence (Storage/Irritative symptoms.) Low urinary stream, straining to void, urinary intermittency or hesitancy, splitting of the voiding stream, terminal dribbling. ENDOCRINOLOGIC: Denies polyuria, polydipsia, polyphagia or heat/cold intolerances. HEMATOLOGIC: Denies thrombophilia/previous clots, or coagulopathy/bleeding disorders. ONCOLOGIC: Denies personal history of malignancy. DERMATOLOGIC: Denies rashes or pruritus. PSYCHIATRIC: Denies any suicidal or homicidal ideation. Denies hallucinations. PHYSICAL EXAM GENERAL APPEARANCE: The patient is awake, alert, and oriented, in no acute cardiopulmonary distress. NEUROLOGICAL: Cranial nerves II-XII grossly intact. Motor is 5/5 in bilateral upper and lower extremities proximal to distal. No sensory deficits. HEENT: Face is symmetric. Pupils are equal and reactive. Extraocular movements are intact. NECK: Supple. No JVD. No thyromegaly. No submental, submandibular, pre- /postauricular, occipital or supraclavicular lymphadenopathy. CHEST: Normal chest expansion. No Telemetry. LUNGS: Absence of any rales, rhonchi or any wheezing. CARDIOVASCULAR: Regular. S1 and S2 normal. No appreciable rubs, murmurs or gallops. ABDOMEN: Soft, nontender, and nondistended. There is no rebound, voluntary guarding, or rigidity. : Deferred. No Elliott. EXTREMITIES: Non-edematous and not cyanotic. No clubbing. Good capillary refill. SKIN: No skin breakdown. Vital Signs (last 8hr) Date Time Temp Pulse Resp B/P (MAP) Pulse Ox O2 Delivery O2 Flow Rate FiO2 04/26/24 09:06 97.9 91 18 139/61 95 04/26/24 07:26 18 N/A Room Air 21 04/26/24 03:52 98.6 92 20 129/59 92 Room Air 04/26/24 03:32 89 19 LABS: Laboratory: Test 04/26/24 05:30 04/26/24 03:48 Range/Units Whole Blood Glucose 114 H 70-110 MG/DL White Blood Count 8.5 4.8-10.8 K/uL Red Blood Count 3.61 L 4.00-5.50 MIL/uL Hemoglobin 10.6 L 12.0-16.0 g/dL Hematocrit 33.2 L 36-48 % Mean Corpuscular Volume 92.0 79-99 fL Mean Corpuscular Hemoglobin 29.4 27.0-33.0 pg Mean Corpuscular Hemoglobin Concent 31.9 L 32.0-36.0 g/dL Red Cell Distribution Width 14.6 11.0-15.5 % Platelet Count 147 130-400 K/uL Mean Platelet Volume 11.7 H 7.5-10.5 fL Immature Granulocyte % (Auto) 0.6 0-1 % Neutrophils (%) (Auto) 65.6 40.0-77.0 % Lymphocytes (%) (Auto) 21.8 21.0-51.0 % Monocytes (%) (Auto) 9.6 3.0-13.0 % Eosinophils (%) (Auto) 1.9 0.0-8.0 % Basophils (%) (Auto) 0.5 0.0-5.0 % Neutrophils # (Auto) 5.6 1.8-7.7 K/uL Lymphocytes # (Auto) 1.9 1.0-4.8 K/uL Monocytes # (Auto) 0.8 0.1-1.0 K/uL Eosinophils # (Auto) 0.16 0.00-0.70 K/uL Basophils # (Auto) 0.04 0.00-0.20 K/uL Absolute Immature Granulocyte (auto 0.05 0-1 K/uL Nucleated Red Blood Cells 0.0 0.0-0.19 % Sodium Level 139 136-145 mmol/L Potassium Level 4.3 3.5-5.1 mmol/L Chloride Level 106 101-111 mmol/L Carbon Dioxide Level 25 21-32 mmol/L Blood Urea Nitrogen 28 H 7-18 mg/dL Creatinine 1.4 H 0.5-1.0 mg/dL Glomerular Filtration Rate Calc 36 >90 mL/min Random Glucose 120 H 70-105 mg/dL Total Calcium 8.3 L 8.5-10.1 mg/dL Magnesium Level 2.00 1.80-2.40 mg/dL Total Bilirubin 0.8 0.2-1.0 mg/dL Aspartate Amino Transf (AST/SGOT) 35 10-37 U/L Alanine Aminotransferase (ALT/SGPT) 24 12-78 U/L Alkaline Phosphatase 85 50-136 U/L Total Protein 6.1 6.0-8.3 g/dL Albumin 2.5 L 3.5-5.0 g/dL Current Medications Medications (Trade) Dose Ordered Sig/Brandan Route PRN Reason Start Time Stop Time Status Last Admin Dose Admin Acetaminophen (TYLenol 325MG TAB) 650 mg Q4H PRN PO TEMPERATURE GREATER THAN 101.5 04/22/24 12:00 05/22/24 11:59 Acetaminophen/ Codeine Phosphate (TYLenol-coDEINE TAB) 1 tab Q4H PRN PO MODERATE PAIN (4-6) 04/22/24 12:00 05/22/24 11:59 04/24/24 06:52 1 TAB Albuterol (DUOneb) 1 UDVIAL Q6H PRN IH SHORTNESS OF BREATH 04/22/24 12:30 05/22/24 12:29 04/26/24 03:31 1 UDVIAL Apixaban (EliquIS) 5 mg BID PO 04/23/24 21:00 05/23/24 20:59 04/25/24 19:30 5 MG Atorvastatin Calcium (LIPItor 10MG) 10 mg HS PO 04/22/24 21:00 04/23/24 10:48 DC 04/22/24 20:06 10 MG Atorvastatin Calcium (LIPItor 20MG) 20 mg HS PO 04/23/24 21:00 05/23/24 20:59 04/25/24 19:30 20 MG Docusate Sodium (COLace 100MG CAP) 100 mg DAILY PO 04/23/24 12:00 05/23/24 11:59 04/25/24 09:25 100 MG Famotidine (Pepcid 20mg Vial) 20 mg DAILY IV 04/23/24 09:00 05/23/24 08:59 04/25/24 09:25 20 MG Fentanyl Citrate (FENTanyl CITRate PF 50 MCG/ 1 ML 2ML VIAL) 25 mcg ONCE IVP 04/22/24 11:00 04/22/24 14:00 DC 04/22/24 11:05 25 MCG Gabapentin (NEURontin 100 mg CAP) 100 mg TID PO 04/23/24 14:00 05/23/24 13:59 04/25/24 19:30 100 MG Hydralazine HCl (APRESOLine 20MG INJ) 5 mg Q6H PRN IV ADMINISTER FOR SBP > 160 04/23/24 09:30 05/23/24 09:29 04/23/24 09:32 5 MG Lactulose (Constulose 20gm/ 30ml Udcup) 20 gm ONCE PO 04/25/24 15:46 04/25/24 21:30 DC 04/25/24 16:36 20 GM Lactulose (Constulose 20gm/ 30ml Udcup) 20 gm Q8H6 PRN PO CONSTIPATION 04/25/24 16:00 05/25/24 15:59 Levothyroxine Sodium (SYNTHroid 50MCG TAB) 50 mcg DAILY@0630 PO 04/23/24 06:30 05/23/24 06:29 04/26/24 06:02 50 MCG Linagliptin (TradJENTA) 5 mg DAILY PO 04/23/24 09:00 05/23/24 08:59 04/25/24 09:26 5 MG Loratadine (LORATAdine 10 mg) 10 mg DAILY PO 04/23/24 09:00 05/23/24 08:59 04/25/24 09:26 10 MG Magnesium Sulfate 50 ml @ 0 mls/hr PROTOCOL IV 04/23/24 09:30 05/23/24 09:29 04/24/24 07:25 1.8 MLS/HR Miscellaneous Medication (Levothyroxine Sodium (Levothyroxine)) 1 cap DAILY PO 04/24/24 09:00 04/23/24 10:54 DC Miscellaneous Medication (Rosuvastatin Calcium ) 10 mg DAILY PO 04/24/24 09:00 04/23/24 10:47 DC Montelukast Sodium (SinguLAIR) 10 mg DAILY PO 04/24/24 09:00 05/24/24 08:59 04/25/24 09:26 10 MG Morphine Sulfate (morPHINE 2MG SYG) 2 mg Q4H PRN IVP SEVERE PAIN (7-10) 04/22/24 12:00 04/29/24 11:59 04/22/24 23:58 2 MG Multivitamins Therapeutic (Multivitamin Tablet) 1 tab DAILY PO 04/24/24 09:00 05/24/24 08:59 04/25/24 09:26 1 TAB Ondansetron HCl (zoFRAN 4MG INJ) 4 mg Q6H PRN IVP NAUSEA/VOMITING 04/22/24 12:00 05/22/24 11:59 Pindolol (Visken) 5 mg BID PO 04/23/24 21:00 05/23/24 20:59 04/25/24 19:30 5 MG Simethicone (Mylicon) 80 mg BID PRN PO GI GAS 04/23/24 10:00 05/23/24 09:59 04/23/24 09:58 80 MG Vitamin B Complex/ Vit C/Folic Acid (Nephrovite Tablet) 1 cap DAILY PO 04/24/24 09:00 05/24/24 08:59 04/25/24 09:26 1 CAP DIAGNOSTICS / RADIOLOGY: [ ] Assessment: s/p ventral hernia repair POA POD 1 recuperating well, hypercoagulable secondary to A fibb on Eliquis POA Postop intractable abdominal pain POA Acute on chronic renal failure stage 3 POA uncontrolled HTN: not POA chronic problems; AFib on anticoagulation Eliquis, chronic diastolic heart failure EF 55-60%. Stage three renal failure, hypertension, hyperlipidemia, diabetes type, vitamin- D deficiency, COPD asthma, COPD asthma PLAN: [ ] Admit to surgical floor Consult surgeon: Dr Sumit BRAMBILA s/p ventral hernia repair POA will follow postoperative recommendations per surgeon POD 3: recuperating well tolerated diet. PT to eval and treat: OOB to chair Encourage early ambulation and deep breathing exercise. IS while awake Labs in am; cbc, cmp, mag+ simethicone for bloatness, colace 100 mg po daily. Pain management for adequate pain control morphine2 mg IV every4 hours, Tylenol #3 for moderate pain. will add gabapentin 100 mg po TID avoid NSAIDS given to Stage III CRF. Replace electrolytes to keep potassium above 4 Magnesium above 2 Home medications resumed: Levothyroxine 50 mcg every morning, Tradjenta5 mg p.o. a.m. atorvastatin 10 mg every bedtime, Fall precautions DVT with SCDs GI prophylaxis Famotidine PRN: MEDICATIONS Tylenol 650 mg po every 4 hrs for fever Zofran 4 mg IV every 6 hrs for n/v Hydralazine 10 mg IV every 4 hrs systolic pressure > 160 duoneb as needed for wheezes Supportive measures: DVT ppx, GI ppx all questions answered case management: [facility]: [facility] Supervising MD: Dr. Christiansen c/d ATTESTATION BY PHYSICIAN I have seen and examined the patient. I reviewed the documentation, medical decision making, and treatment plan as noted by the mid-level provider above. I agree with the findings and plan of care. ASIA CHRISTIANSEN MD, [facility] NP Apr 26, 2024 09:14
[2024-04-26 09:33] LABS: BASOPHILS # (AUTO) 0.02 K/uL (0.00-0.20); BASOPHILS % (AUTO) 0.2 % (0.0-5.0); EOSINOPHILS # (AUTO) 0.15 K/uL (0.00-0.70); EOSINOPHILS % (AUTO) 1.9 % (0.0-8.0); IMMATURE GRANULOCYTE ABSOLUTE 0.05 K/uL (0-1); LYMPHOCYTES # (AUTO) 1.6 K/uL (1.0-4.8); LYMPHOCYTES % (AUTO) 19.6 % (21.0-51.0); MEAN CORPUSCULAR HEMOGLOBIN 28.6 pg (27.0-33.0); MEAN CORPUSCULAR HGB CONC 31.2 g/dL (32.0-36.0); MEAN CORPUSCULAR VOLUME 91.9 fL (79-99); MONOCYTES # (AUTO) 0.7 K/uL (0.1-1.0); MONOCYTES % (AUTO) 8.6 % (3.0-13.0); NEUTROPHILS # (AUTO) 5.6 K/uL (1.8-7.7); NEUTROPHILS % (AUTO) 69.1 % (40.0-77.0); PLATELET COUNT (AUTO) 154 K/uL (130-400); RED CELL DISTRIBUTION WIDTH 14.6 % (11.0-15.5); WHITE BLOOD COUNT (AUTO) 8.1 K/uL (4.8-10.8)
[2024-04-27 04:00] VITALS: BP 146/61; PULSE 81; RESP 20; TEMP 98.2
[2024-04-27 04:55] LABS: ALBUMIN 2.5 g/dL (3.5-5.0); CREATININE 1.3 mg/dL (0.5-1.0); POTASSIUM 4.1 mmol/L (3.5-5.1); TOTAL PROTEIN, SERUM 6.1 g/dL (6.0-8.3)
[2024-04-27 06:19] VITALS: PULSE 86; RESP 18; O2SAT 93
[2024-04-27 08:15] VITALS: O2SAT 96
[2024-04-27 08:48] VITALS: BP 136/63; PULSE 80; RESP 19; TEMP 97.8
--- NOTE | 2024-04-27 10:12 | DS ---
Discharge Summary Hospital Course Summary: This is a 88-year-old female who underwent outpatient laparoscopic ventral hernia repair with mesh per Dr. Arana. During the course of recovery patient was having severe abdominal pain postop. Patient is was given fentanyl in day surgery brought down pain to 3/10. Patient will be admitted for ob servation for pain management. With the course of stay patient received physical therapy. And pain management for adequate pain control due to instability patient we will be transitioned to [facility] for physical therapy for strengthening and stability. Patient is clinically stable no nausea no vomiting. Procedure(s): Operative Note: DATE OF PROCEDURE: 04/22/24 SURGEON: JANI ARANA MD GREENHOUSE SUPERINTENDENT: [ITZEL Dutton] ANESTHESIA: [General endotracheal anesthesia] ANESTHESIOLOGIST/LEAD APPLICATION ARCHITECT: [[facility] anesthesia team] PREOPERATIVE DIAGNOSIS: [Ventral hernia incarcerated] POSTOPERATIVE DIAGNOSIS: [Same] SYNOPSIS: [Incarcerated ventral hernia Laparoscopic ventral hernia repair with mesh Appropriate closure of hernia defect All sponges and instruments were accounted for at the end the case Patient tolerated the procedure well, there no complications] PROCEDURE: [Laparoscopic ventral hernia repair with mesh] ESTIMATED BLOOD LOSS: [Less than 10 cc] INDICATIONS: [Ventral hernia causing patient discomfort] DESCRIPTION OF PROCEDURE: [On day of surgery patient was brought operating room. Position in the supine position. Preoperative antibiotics were given. Bilateral SCDs were placed. Patient was intubated. Patient was prepped and draped in the usual fashion. Skin incision made in the left upper quadrant. 5 mm trocars inserted under direct vision. Abdomen was insufflated 15 mmHg. No injury to omentum or bowel was noted. Then a 5 mm port was placed in the left lateral abdomen. The incarcerated omentum was sequentially reduced. Then the hernia sac was reduced. The hernia defect itself measured approximately 8 cm cm in the craniocaudal direction. Then the hernia defect was closed with suture in a [id number]-[id number] fashion. Multiple rows of zhgyak-fb-[id number] fashion were placed in overlapping fashion. Complete closure of the hernia defect was achieved. Then a piece of Phasix mesh measuring 7 x 10 cm was used to cover the primary hernia repair. It was held in place by a transfascial suture then tacked circumferentially with an absorbable Tacker. Complete coverage of the primary hernia repair was achieved. Then all insufficient gas was removed. Ports removed. Then the incision was closed in subcuticular fashion and appropriately dressed. Patient then was woken up, transferred to, taken to recovery room to recover. All sponges and instruments were accounted for the end the case. Patient tolerated the procedure well, there is no complications.] JANI ARANA MD Apr 22, 2024 08:16 Assessment/Plan: Discharged dx's; s/p ventral hernia repair POA POD 1 recuperating well, hypercoagulable secondary to A fibb on Eliquis POA Postop intractable abdominal pain POA Acute on chronic renal failure stage 3 POA uncontrolled HTN: not POA chronic problems; AFib on anticoagulation Eliquis, chronic diastolic heart failure EF 55-60%. Stage three renal failure, hypertension, hyperlipidemia, diabetes type, vitamin- D deficiency, COPD asthma, COPD asthma PLAN: ADMISSION DATE: April 22, 2024 DISCHARGE DATE: April 27, 2024 DISPOSITION: SNF: [facility] CONDITION: Stable ICT SALES ASSISTANT(S): General surgeon; DR Arana FOLLOW UP APPOINTMENT(S): DR Arana two wks. PROCEDURES: ventral hernia repair IMAGING (S) report attached to summary : none MICROBIOLOGY: report attached to summary; None ACTIVITY: ab marialuisa HOME MEDICATIONS: remain the same CHANGES ON HOME MEDICATIONS; NOne NEW MEDICATIONS: none Home Medications: Active Scripts Tramadol HCl (Tramadol HCl ER) 100 Mg Cpbp.25.75, 50 MG PO Q6HPRN PRN for PAIN, #28 TAB 0 Refills Prov:JANI ARANA MD 04/22/24 Reported Medications Multivitamin (Multi Vitamin Daily) 1 Each Tablet, 1 TAB PO DAILY for 30 Days, #30 TAB 0 Refills 04/19/24 Pindolol (Pindolol) 10 Mg Tablet, 5 MG PO BID, TAB 04/19/24 Vit B Cmplx 3/FA/Vit C/Biotin (Bro[facility] Rx Tablet) 1 Mg-60 Mg-300 Mcg Tablet, 1 TAB PO DAILY for 30 Days, #30 TAB 0 Refills 04/19/24 Rosuvastatin Calcium (Rosuvastatin Calcium) 10 Mg Tablet, 10 MG PO DAILY, TAB 04/19/24 Loratadine (Loratadine) 10 Mg Tablet, 10 MG PO DAILY, TAB 04/19/24 Linagliptin (Tradjenta) 5 Mg Tablet, 5 MG PO DAILY, TAB 04/19/24 Levothyroxine Sodium (Levothyroxine) 50 Mcg Capsule, 1 CAP PO DAILY for 30 Days, #30 CAP 0 Refills 04/19/24 Montelukast Sodium (Montelukast Sodium) 10 Mg Tablet, 10 MG PO DAILY, TAB 04/19/24 Apixaban (Eliquis) 5 Mg Tablet, 1 TAB PO BID for 30 Days, #60 TAB 0 Refills 04/19/24 Esomeprazole Magnesium (Esomeprazole Magnesium) 40 Mg Capsule.dr, 1 CAP PO DAILY for 30 Days, #30 CAP 0 Refills 04/19/24 Albuterol Sulfate (Ventolin Hfa) 90 Mcg Hfa.aer.ad, 1 PUFF IH 4 x's a day PRN PRN for wheezing for 30 Days, #18 GM 0 Refills 04/19/24 [erythromycin oint] No Conflict Check, 0.5 TP BID 04/19/24 New Medications: Docusate Sodium (Colace) 100 Mg Capsule 1 CAP PO BID for 30 Days, #60 CAP 0 Refills Tramadol HCl (Tramadol HCl ER) 100 Mg Cpbp.25.75 50 MG PO Q6HPRN PRN for PAIN, #28 TAB 0 Refills Continued Medications: Albuterol Sulfate (Ventolin Hfa) 90 Mcg Hfa.aer.ad 1 PUFF IH 4 x's a day PRN PRN for wheezing for 30 Days, #18 GM 0 Refills Apixaban (Eliquis) 5 Mg Tablet 1 TAB PO BID for 30 Days, #60 TAB 0 Refills [erythromycin oint] () 0.5 TP BID Esomeprazole Magnesium (Esomeprazole Magnesium) 40 Mg Capsule.dr 1 CAP PO DAILY for 30 Days, #30 CAP 0 Refills Levothyroxine Sodium (Levothyroxine) 50 Mcg Capsule 1 CAP PO DAILY for 30 Days, #30 CAP 0 Refills Linagliptin (Tradjenta) 5 Mg Tablet 5 MG PO DAILY, TAB Loratadine (Loratadine) 10 Mg Tablet 10 MG PO DAILY, TAB Montelukast Sodium (Montelukast Sodium) 10 Mg Tablet 10 MG PO DAILY, TAB Multivitamin (Multi Vitamin Daily) 1 Each Tablet 1 TAB PO DAILY for 30 Days, #30 TAB 0 Refills Pindolol (Pindolol) 10 Mg Tablet 5 MG PO BID, TAB Rosuvastatin Calcium (Rosuvastatin Calcium) 10 Mg Tablet 10 MG PO DAILY, TAB Vit B Cmplx 3/FA/Vit C/Biotin (Bro[facility] Rx Tablet) 1 Mg-60 Mg-300 Mcg Tablet 1 TAB PO DAILY for 30 Days, #30 TAB 0 Refills Time spent arranging discharge: 31-60 minutes ATTESTATION BY PHYSICIAN I have seen and examined the patient. I reviewed the documentation, medical decision making, and treatment plan as noted by the mid-level provider above. I agree with the findings and plan of care. ASIA LR MD, ELIZABETH NP Apr 27, 2024 10:12
--- NOTE | 2024-04-27 12:30 | NUR ---
Pt was cleared for discharge. Report given to ARAMIS Alas from [facility] at 1155 Pt to follow up with Dr Arana in his office within 1-2 weeks. [facility] to send facility van for pt pickup. Pt in good spirits, sitting at bedside pending pickup.
[2024-04-27 13:16] VITALS: BP 130/73; PULSE 77; RESP 19; TEMP 98.6
--- NOTE | 2024-04-27 15:40 | NUR ---
Pt was picked up via facility van at 1530.
== END 2024-04-27 15:25 | DRG 354 ==
LOC: DAH 05:55 → DAHIP 05:56 → DAH 05:56 → OBSVTOIN 05:56 → INTOOBSV 05:56 → 3BH 18:40
PROVIDERS: ADMIT Internal Medicine; ATTEND Internal Medicine
PROC: 0WUF4JZ Supplement Abdominal Wall with Synthetic Substitute, Percutaneous Endoscopic Approach (ICD-10-PCS; principal; 2024-04-22 06:55)
DX: K43.6 Other and unspecified ventral hernia with obstruction, without gangrene (principal); D68.69 Other thrombophilia; N17.9 Acute kidney failure, unspecified; I13.0 Hypertensive heart and chronic kidney disease with heart failure and stage 1 through stage 4 chronic kidney disease, or unspecified chronic kidney disease; I50.32 Chronic diastolic (congestive) heart failure; N18.30 Chronic kidney disease, stage 3 unspecified; E11.22 Type 2 diabetes mellitus with diabetic chronic kidney disease; E55.9 Vitamin D deficiency, unspecified; E78.5 Hyperlipidemia, unspecified; I48.91 Unspecified atrial fibrillation; G89.18 Other acute postprocedural pain; J44.89 Other specified chronic obstructive pulmonary disease; Z79.01 Long term (current) use of anticoagulants; Z79.899 Other long term (current) drug therapy; Z90.49 Acquired absence of other specified parts of digestive tract
CPT/HCPCS: 36415; 80048; 80053; 82948; 83735; 85025; 85027; 85610; 85730; 94640; C1781; G0378; J0360; J0690; J1100; J2003; J2270; J2371; J2405; J2704; J2710; J2795; J3010; J3475; J3490; J7030; A4215; A4221; A4222; A4223; A4335; A4554; A4600; A4648; A4663; A4930; A6260